=== PATIENT | female | born 1965 | race Caucasian/White ===

== ENCOUNTER → 2020-02-20 08:48 | Outpatient (CLI) | payer SELFPAY ==
--- NOTE | 2020-02-20 09:02 | BI_ITS ---
MAMMOGRAPHY - BILATERAL DIAGNOSTIC REASON FOR EXAM: Female, 54 years old. Routine screening PERTINENT HISTORY: NO FM HX , RT PEA SIZE LUMP SINCE JUN 2019 LIQ -GETS SMALLER AT TIMES BUT NOTICED AGAIN RECENTLY TECHNIQUE: Digital examination. Mediolateral oblique (MLO) and craniocaudad (CC) views of both breasts were obtained. CAD: CAD was performed on this study. COMPARISON: 2016 FINDINGS: Breast Composition: The breasts are almost entirely fatty. There are no dominant masses or suspicious calcifications. However, because the patient complains of a right breast lump, further evaluation with ultrasound is recommended No other significant abnormalities are identified. BI/DIAG MAMM W/CAD, BILAT IMPRESSION: Further ultrasonographic evaluation recommended, as described above. Recall Side: Right Breast ASSESSMENT CATEGORY: BIRADS Category 0: Incomplete. Need additional imaging evaluation. A letter regarding these results will be sent to the patient by the facility within 30 days. FOLLOW UP RECOMMENDATION: Ultrasound Recommended. (I) Approximately 10% of breast cancers are not detected by mammography. A normal mammogram should not delay biopsy of a clinically suspicious abnormality. Electronically Signed: Jeovanny Carey MD at 11:18 EDT , Service support ,
--- NOTE | 2020-02-20 09:02 | US_ITS ---
STUDY: ULTRASOUND BREAST - RIGHT REASON FOR EXAM: Female, 54 years old. Lump TECHNIQUE: Axial and longitudinal images of the RIGHT breast were performed with a high resolution ultrasound transducer. # OF IMAGES: 24 COMPARISON: Mammogram from 02/20/2020 FINDINGS: RIGHT Breast: Ultrasound evaluation of the right breast well-defined hypoechoic 0.6 x 0.4 x 0.3 cm nodule at 3 o''clock, 3 cm from the nipple. There is no posterior shadowing or associated architectural distortion. There is no suspicious shadowing solid lesion, or adenopathy. US/Breast Limited Unilateral IMPRESSION: Benign hypoechoic nonshadowing nonvascular 0.6 x 0.4 x 0.3 cm nodule at 3 o''clock, 3 cm from the nipple, likely a small fibroadenoma. No suspicious sonographic findings ASSESSMENT CATEGORY: BIRADS Category 2: Benign. A letter regarding these results will be sent to the patient by the facility within 30 days. Electronically Signed: Jeovanny Carey MD at 10:59 EDT , Service support ,
== END ==
DX: N63.10 Unspecified lump in the right breast, unspecified quadrant (principal)
CPT/HCPCS: 76642; 77062; 77066; G0279

== ENCOUNTER 2023-12-05 08:11 | Emergency (ER) | payer OTHER, SELFPAY ==
[2023-12-05] VITALS (8 sets, daily range): BP systolic 104–131; BP diastolic 61–91; PULSE 94–102; RESP 13–19; TEMP 36.6–36.9; O2SAT 92–100; BMI 33.3
--- NOTE | 2023-12-05 08:40 | EKG12_ITS ---
Test Reason : COUGH Blood Pressure : / mmHG Vent. Rate : 089 BPM Atrial Rate : 089 BPM P-R Int : 130 ms QRS Dur : 090 ms QT Int : 356 ms P-R-T Axes : 038 081 042 degrees QTc Int : 433 ms Normal sinus rhythm Normal ECG Confirmed by LIAM DAMON MD ([id number]), supervising film or videotape editor CHERRY MCKINNON ([id number]) on 12/07/2023 6:52:10 AM Referred By: Confirmed By:LIAM DAMON MD
--- NOTE | 2023-12-05 08:41 | EDS_ITS ---
HPI History of Present Illness Chief Complaint: Cough Narrative Narrative: 58-year-old female presenting with shortness of breath, cough, left-sided rib pain. Patient states that the cough started a couple of weeks ago. She is been seen by her PCP and states she had normal lab work. She has not had a chest x- ray however she states that her primary care ordered her a screening CT for cancer as she has a history of smoking. Patient reports has been worse today and yesterday and now she has pain with it. She describes shortness of breath just walking to the mailbox which is atypical for her. She has not had a fever, chills. She does not feel sick although she does have significant shortness of breath she says. She has not had any lower extremity edema. She states when she sleeps at night she feels short of breath when she wakes up. Now she reports she has been coughing so bad that the left lower abdomen started to hurt. Denies diarrhea, constipation, urinary symptoms. No vaginal complaints. PE Risk Factors: Negative for Cancer, OCP + Smoking + > 35, Prior DVT or PE, Recent immobilization, Recent surgery or Recent travel [facility] Medical History (Updated 12/05/23 @ 10:01 by Radha Humphrey) COPD (chronic obstructive pulmonary disease) Chronic pain Home Medications ?Medication ?Instructions ?Recorded ?Last Taken ?Type albuterol sulfate 90 mcg/actuation 2 puff inhalation Q4H PRN PRN 12/05/23 12/05/23 History aerosol inhaler wheezing benzonatate 100 mg capsule 100 mg PO TID PRN PRN cough 12/05/23 12/05/23 History budesonide-formoterol HFA 160 2 puff inhalation BID 12/05/23 12/05/23 History mcg-4.5 mcg/actuation aerosol inhaler cyclobenzaprine 10 mg tablet 10 mg PO BID PRN PRN muscle spasm 12/05/23 12/05/23 History gabapentin 100 mg capsule 100 mg PO DAILY 12/05/23 12/05/23 History hydrocodone 7.5 mg-acetaminophen 1 tab PO TID PRN PRN pain 12/05/23 12/05/23 History 325 mg tablet lidocaine 5 % topical patch 1 patch topical DAILY #15 ea 12/05/23 Unknown Rx Allergy/AdvReac Type Severity Reaction Status Date / Time acetaminophen (From Percocet) Allergy Itching Verified 12/05/23 08:14 azithromycin (From Zithromax) Allergy Itching Verified 12/05/23 08:14 clarithromycin (From Biaxin) Allergy PT UNSURE Verified 12/05/23 08:14 OF REACTION omeprazole (From Prilosec) Allergy PT UNSURE Verified 12/05/23 08:14 OF REACTION oxycodone (From Percocet) Allergy Itching Verified 12/05/23 08:14 Penicillins (PCN) Allergy Swelling Verified 12/05/23 08:14 Surgical History (Updated 12/05/23 @ 10:01 by Radha Humphrey) History of tonsillectomy History of ear surgery History of partial hysterectomy Social History Smoking Status: Current every day smoker tobacco type: cigarettes ROS ROS ED Constitutional Constitutional ED: Denies chills, fever(s) or sweats Eyes Eyes: Denies blurry vision or change in vision ENT ENT ED: Denies ear pain or sore throat Cardiovascular Cardiovascular: Reports orthopnea and other Details: Left rib pain ; Denies chest pain, palpitations or racing heartbeat Respiratory/Chest Respiratory/Chest: Reports cough, dyspnea, dyspnea on exertion and orthopnea; Denies sputum Gastrointestinal Gastrointestinal: Denies abdominal pain, constipation, diarrhea, nausea or vomiting Genitourinary Genitourinary ED: Denies dysuria, hematuria or urinary frequency Musculoskeletal Musculoskeletal: Denies arthralgias, myalgias or neck pain Integumentary Denies abscess, Abrasions or rash Neurologic Neurologic: Denies headache(s), paresthesias or weakness Psychiatric Psychiatric: Denies anxiety, depression, suicidal ideation or suicidal thoughts Endocrine Endocrinology: Denies polydipsia or polyuria EXAM Physical Exam Const Vital Signs: 12/05/23 08:14 12/05/23 08:14 12/05/23 08:40 Temperature 97.8 F 97.8 F Temperature Source Temporal Temporal Pulse Rate 102 H 102 H Respiratory Rate 18 18 Respiratory Effort Respiratory Depth Respiratory Pattern Blood Pressure 131/91 H 131/91 H Blood Pressure Mean 104 104 Pulse Ox 100 100 94 Oxygen Delivery Method Room Air Room Air Room Air 12/05/23 09:11 12/05/23 09:14 12/05/23 10:00 Temperature 97.9 F 97.8 F Temperature Source Temporal Temporal Pulse Rate 97 94 Respiratory Rate 14 13 Respiratory Effort Normal Non-Labored Respiratory Depth Normal Respiratory Pattern Normal Blood Pressure 124/81 H 109/79 Blood Pressure Mean 95 89 Pulse Ox 95 92 Oxygen Delivery Method Room Air Room Air Room Air 12/05/23 11:00 12/05/23 12:16 Temperature 98.0 F 98.4 F Temperature Source Temporal Temporal Pulse Rate 97 99 Respiratory Rate 19 H 17 Respiratory Effort Respiratory Depth Respiratory Pattern Blood Pressure 111/72 110/70 Blood Pressure Mean 85 83 Pulse Ox 93 94 Oxygen Delivery Method Room Air Room Air Positive well nourished General Appearance ED: NAD HEENT Reports moist mucous membranes atraumatic Eyes PERRL and EOMs intact bilaterally Neck no lymphadenopathy Chest Wall Chest Narrative: Tenderness to palpation of the left ribs posteriorly, laterally, anteriorly. Equal symmetric breath sounds and chest wall rise. No crepitance. No bruising, no rashes. Resp normal respiratory effort Cardio regular rhythm Rate: tachycardic GI Palpation: Negative for guarding, hepatomegaly or splenomegaly Back/Spine no CVA tenderness Neuro oriented x3 and CN's II-XII intact bilaterally Sensorium / Orientation: alert Motor Exam: strength 5/5 throughout Psych mental status grossly normal Skin no wounds MDM MDM MDM Narrative Medical decision making narrative: Patient presenting with left-sided rib pain from coughing for 2 weeks. Differential includes but is not limited to ACS, PE, aortic dissection, pneumonia, pneumothorax, CHF, muscle strain, costochondritis. Says it has been going on for 2 weeks I do not think she needs viral testing. CBC was obtained to assess white blood cell count, hemoglobin, platelets. BMP to assess renal function, electrolytes, glucose. High-sensitivity troponin EKG to assess for ischemia/dysrhythmia. BNP to assess for CHF. D-dimer to assess for PE. CBC shows normal white blood cell count 6.2. Hemoglobin 13.8. Platelets are normal at 252. Renal function and electrolytes within normal limits. High-sensitivity troponin is 6. EKG interpreted by myself shows a sinus rhythm at 89 bpm without sign of ischemic change or ectopy. BNP 12.5. Left rib series was obtained and interpreted by myself as no acute findings. There is no evidence of rib fracture or pneumonia. D-dimer came back elevated at 3.37 so we did obtain a CTA of the chest and this does not show anything acute. No evidence of PE, pneumonia, dissection, pleural effusion. Patient counseled on findings. She states she already has muscle relaxers and pain medicine at home. I will provide her with some Lidoderm patches to see if this will help with the pain. She was given 1 here in the ED. I feel she stable for discharge. Impression: 1. Dyspnea 2. Cough 3. Muscle strain 4. Chest pain?noncardiac Lab Data Attestation: I reviewed the patient's lab results. Labs: Laboratory Results - last 24 hr 12/05/23 08:50 WBC 6.2 RBC 4.65 Hgb 13.8 Hct 42.5 MCV 91.4 MCH 29.7 MCHC 32.5 RDW Std Deviation 46.6 H RDW Coeff of Luisa 13.8 Plt Count 252 MPV 8.6 Immature Gran % (Auto) 0.500 Neut % (Auto) 69.8 Lymph % (Auto) 17.2 L Dickinson % (Auto) 9.8 Eos % (Auto) 2.2 Baso % (Auto) 0.5 Absolute Neuts (auto) 4.4 Absolute Lymphs (auto) 1.07 Nucleated RBC % 0 D-Dimer Quant (PE/DVT) 3.37 H* Sodium 137 Potassium 3.9 Chloride 103 Carbon Dioxide 28.0 Anion Gap 6 BUN 7 Creatinine 0.68 Estim Creat Clear Calc 81.92 Est GFR (MDRD) Af Amer 113 Est GFR (MDRD) Non-Af 93 BUN/Creatinine Ratio 10.2 Glucose 106 Calcium 9.2 Troponin I High Sens 6 B-Natriuretic Peptide 12.5 Radiography Diagnostic Testing: Clinical Impression(s) from Imaging Studies Ribs w/Chest X-Ray 12/05/23 09:07 IMPRESSION: No evidence of displaced rib fracture. Electronically Signed: Eulalio Ramos MD at 9:31 EDT , Chest CTA 12/05/23 10:16 IMPRESSION: 1. No evidence of pulmonary embolism. 2. No acute pulmonary infiltrate or pleural effusions. 3. No demonstrated acute fracture. Electronically Signed: Eulalio Ramos MD at 12:16 EDT , Discharge Plan Triage Chief Complaint: Cough ED Provider: Alfa Carolina Dx/Rx/DC Orders Instructions: ED Chest Pain, Noncardiac, ED Dyspnea, ED Muscle Strain, Abdomen Prescriptions: New lidocaine 5 % adhesive patch,medicated 1 patch topical DAILY Qty: 15 0RF Rx Instructions: leave on most painful area for up to 12 hrs No Action benzonatate 100 mg capsule 100 mg PO TID PRN PRN (Reason: cough) albuterol sulfate 90 mcg/actuation HFA aerosol inhaler 2 puff INHALATION Q4H PRN PRN (Reason: wheezing) cyclobenzaprine 10 mg tablet 10 mg PO BID PRN PRN (Reason: muscle spasm) hydrocodone-acetaminophen 7.5-325 mg tablet 1 tab PO TID PRN PRN (Reason: pain) gabapentin 100 mg capsule 100 mg PO DAILY budesonide-formoterol 160-4.5 mcg/actuation HFA aerosol inhaler 2 puff INHALATION BID Primary Care Provider: Luba Cooper Referrals: SERA RUBALCAVA [Other] Print Language: Swedish Disposition Disposition: Home, Self Care
--- NOTE | 2023-12-05 08:42 | NURSING ---
NO OLD EKGS
[2023-12-05] MEDS: Ondansetron 4 MG/2 ML Vial IV (08:57)
[2023-12-05] MEDS: Morphine 4 MG/ML Syringe IV (08:57)
[2023-12-05 09:03] LABS: Absolute Lymphocyte Count 1.07 X10^3/uL (0.83-4.51); Absolute Neutrophil Count 4.4 X10^3/uL (2.0-7.7); Basophil# 0.03 X10^3/uL; Basophil% 0.5 % (0-1); Eosinophil# 0.14 X10^3/uL; Eosinophils% 2.2 % (0-5); Hematocrit 42.5 % (37-47); Hemoglobin 13.8 g/dL (12.0-15.0); Lymphocyte # 1.07 X10^3/ul (0.83-4.51); Lymphocyte % 17.2 % (19-41); Mean Corp Hgb Conc 32.5 g/dL (32-36); Mean Corpuscular Hgb 29.7 pg (27.0-32.0); Mean Corpuscular Volume 91.4 fL (81-99); Mean Platelet Vol. 8.6 fl (6.2-12.0); Monocyte# 0.61 X10^3/uL; Monocyte% 9.8 % (0-10); NRBC Flagged by Analyzer 0 % (0-5); Neutrophil # 4.35 X10^3/uL (2.7-7.7); Neutrophil % 69.8 % (47-70); Platelet Count 252 K/mm3 (150-450); RBC Distribution Width CV 13.8 % (11.6-14.6); RBC Distribution Width SD 46.6 fl (35.1-43.9); Red Blood Count 4.65 M/mm3 (4.2-5.4); White Blood Count 6.2 K/mm3 (4.4-11.0)
--- NOTE | 2023-12-05 09:07 | RAD_ITS ---
INDICATION: pain EXAMINATION/TECHNIQUE: X-RAY - XR Ribs Unilateral W/ PA Chest Min 3 Views COMPARISON: No relevant prior comparison study available FINDINGS: SOFT TISSUES: No soft tissue swelling or gas. BONES: No displaced fracture. No sclerotic or destructive changes observed. VISUALIZED LUNGS: Clear. No pneumothorax. RAD/Ribs Uni Min 3V w/PA Chest IMPRESSION: No evidence of displaced rib fracture. Electronically Signed: Eulalio Ramos MD at 9:31 EDT ,
[2023-12-05 09:25] LABS: BNP,B-Type NATRIURETIC PEPTIDE 12.5 pg/mL (0-100)
[2023-12-05 09:32] LABS: Anion Gap 6 (5-15); BUN 7 mg/dL (7-18); BUN/Creat Ratio 10.2 RATIO (10-20); Calcium,Total 9.2 mg/dL (8.5-10.1); Chloride 103 mmol/L (98-107); Creatinine, Serum 0.68 mg/dL (0.55-1.02); EST Glomerular Filtration Rate 93 mL/min (>60); Est Glom Filt Rate - Afr Amer 113 mL/min (>60); Estimated Creatinine Clearance 81.92 ml/min; Glucose 106 mg/dL (74-106); Potassium 3.9 mmol/L (3.5-5.1); Sodium Level 137 mmol/L (136-145); Troponin-I HS 6 pg/mL (3.0-54.0)
[2023-12-05 10:16] LABS: D-Dimer Quantitative (DVT/PE) 3.37 FEU/ug/m (0.27-0.49)
--- NOTE | 2023-12-05 10:16 | CT_ITS ---
STUDY: CTA CHEST REASON FOR EXAM: Female, 58 years old. Left rib pain RADIATION DOSAGE (If Supplied By Facility): CTDIvol = ( 12.44 ) mGy, DLP = ( 390.07 ) mGycm TECHNIQUE: The examination was performed with the intravenous administration of IV 100mL Isovue-370. Post-processing of the angiographic images was performed, with multiplanar reformation and 3D reconstruction. The protocol utilizes one or more of the following dose reduction techniques: automated exposure control, adjustment of mA and/or kV according to patient size,and/or use of iterative reconstruction technique. COMPARISON: No relevant prior comparison study available FINDINGS: Normal enhancement of the main pulmonary artery and right and left pulmonary arteries. Normal enhancement of the bilateral peripheral pulmonary arteries. There is no demonstrated pulmonary embolism. Normal thoracic aorta and visualized great vessels. There is no demonstrated aortic dissection. Normal heart and pericardium. Prominent nodes in the aortopulmonic be reactive. Otherwise no evidence of mediastinal adenopathy. Normal hilar regions. Normal visualized trachea and bronchi. There are no pulmonary infiltrates. Calcified right upper lobe granuloma. There are no pleural effusions. Normal chest wall structures. No demonstrated acute osseous changes. Mild depression of the superior endplate of T12. No demonstrated acute process in the visualized upper abdomen. Calcified granulomata in the spleen. CT/CTA Chest W/WO Contrast IMPRESSION: 1. No evidence of pulmonary embolism. 2. No acute pulmonary infiltrate or pleural effusions. 3. No demonstrated acute fracture. Electronically Signed: Eulalio Ramos MD at 12:16 EDT ,
[2023-12-05] MEDS: HYDROmorphone 0.5 MG/0.5 ML SYRINGE IV (10:34)
[2023-12-05] MEDS: Lidocaine 5% Patch 1 PATCH TOPICAL (12:34)
== END 2023-12-05 12:47 | disposition home or self-care (01) ==
PROVIDERS: Emergency Provider Student in an Organized Health Care Education/Training Program; PCP Nurse Practitioner Family; Visit Provider Student in an Organized Health Care Education/Training Program
DX: R06.00 Dyspnea, unspecified (principal); J44.9 Chronic obstructive pulmonary disease, unspecified; R05.9 Cough, unspecified; F17.210 Nicotine dependence, cigarettes, uncomplicated; R07.89 Other chest pain; Z79.51 Long term (current) use of inhaled steroids
CPT/HCPCS: 71101; 71275; 80048; 83880; 84484; 85025; 85379; 93005; 96374; 96375; 96376; 99285; Q9967; A4216; J2405

== ENCOUNTER → 2024-12-23 | Outpatient (CLI) | payer SELFPAY ==
[2024-12-23 15:50] LABS: Absolute Lymphocyte Count 1.35 X10^3/uL (0.83-4.51); Absolute Neutrophil Count 4.6 X10^3/uL (2.0-7.7); Basophil# 0.03 X10^3/uL; Basophil% 0.5 % (0-1); Hematocrit 40.2 % (37-47); Hemoglobin 13.7 g/dL (12.0-15.0); Lymphocyte # 1.35 X10^3/ul (0.83-4.51); Mean Corp Hgb Conc 34.1 g/dL (32-36); Mean Corpuscular Hgb 29.7 pg (27.0-32.0); Mean Platelet Vol. 8.8 fl (6.2-12.0); Monocyte# 0.47 X10^3/uL; Monocyte% 7.3 % (0-10); NRBC Flagged by Analyzer 0 % (0-5); Neutrophil # 4.56 X10^3/uL (2.7-7.7); Neutrophil % 70.9 % (47-70); Platelet Count 312 K/mm3 (150-450); RBC Distribution Width CV 13.7 % (11.6-14.6); RBC Distribution Width SD 43.8 fl (35.1-43.9); Red Blood Count 4.62 M/mm3 (4.2-5.4); White Blood Count 6.4 K/mm3 (4.4-11.0)
[2024-12-23 16:00] LABS: Hemoglobin A1c 5.1 % (<=5.6)
[2024-12-23 16:51] LABS: ALB/GLOB Ratio 1.6 RATIO (0.9-2.4); AST(SGOT) 17 U/L (<=31); Alanine Aminotransfer ALT/SGPT 13 U/L (<=34); Albumin, Serum 4.2 g/dL (3.4-4.8); Alkaline Phosphatase 79 U/L (35-104); Anion Gap 13 (5-15); BUN 7 mg/dL (4-19); BUN/Creat Ratio 10.9 RATIO (10-20); Calcium,Total 9.2 mg/dL (7.6-11.0); Carbon Dioxide 21.8 mmol/L (21.0-32.0); Chloride 101 mmol/L (98-108); Cholesterol 198 mg/dL (<=200); Creatinine, Serum 0.62 mg/dL (0.70-1.20); EST Glomerular Filtration Rate 102 (>60); Globulin 2.6 g/dL (2.2-4.2); Glucose 99 mg/dL (70-99); High Density Lipoprotein 69 mg/dL; Low Density Lipoprotein Calc. 111 mg/dL; Potassium 3.6 mmol/L (3.3-5.1); Protein, Total 6.7 g/dL (5.9-8.4); Sodium Level 136 mmol/L (133-145); Total Bilirubin 0.22 mg/dL (0.00-1.30); Triglycerides 91 mg/dL; Very Low Density Lipoprotein 18 mg/dL (5-40); Vitamin B12 277 pg/mL (180-914); Vitamin D,25 Hydroxy 22.7 ng/mL (30-100); cholesterol:hdl ratio screen 2.89
[2024-12-23 17:06] LABS: FOLATES,SERUM (FOLIC ACID) 3.65 ng/mL (4.60-34.80)
[2024-12-25 06:38] LABS: GGTP 12 IU/L (0-60)
== END | disposition home or self-care (01) ==
LOC: LAB 14:08
PROVIDERS: PCP Nurse Practitioner Family; Referring Provider Nurse Practitioner Family; Visit Provider Nurse Practitioner Family
DX: E78.5 Hyperlipidemia, unspecified (principal); J44.9 Chronic obstructive pulmonary disease, unspecified; F41.9 Anxiety disorder, unspecified
CPT/HCPCS: 36415; 80053; 80061; 82306; 82607; 82746; 82977; 83036; 84439; 84443; 85025

== ENCOUNTER → 2025-01-05 | Outpatient (CLI) | payer SELFPAY ==
--- NOTE | 2025-01-05 07:37 | BI_ITS ---
EXAM: SCRN MAMM (CAD)W/JONAS BILAT DATE: 01/05/2025 CLINICAL HISTORY: F, Age 59 y/o , SCREENING TECHNIQUE: SCRN MAMM (CAD)W/JONAS BILAT COMPARISON: Prior exam(s) dated 02/20/2020. FINDINGS: TISSUE DENSITY: There are scattered areas of fibroglandular density. Bilateral Breast Mammographic Findings: There is in a regular high density spiculated mass in the retroareolar right breast. No significant masses, calcifications or other abnormalities are identified in the left breast. BI/SCRN MAMM (CAD)W/JONAS BILAT IMPRESSION: The irregular spiculated mass in the retroareolar right breast requires further evaluation. Recommend diagnostic ultrasound of the right breast and right axilla. OVERALL FINAL ASSESSMENT BI-RADS 0: INCOMPLETE - NEED ADDITIONAL IMAGING EVALUATION. RECOMMENDATION: Additional Views obtained/call backs A letter with findings and recommendations will be mailed to the patient. Reading Location: [id number]
--- NOTE | 2025-01-05 07:37 | BI_ITS ---
EXAM: SCRN MAMM (CAD)W/JONAS BILAT DATE: 01/05/2025 CLINICAL HISTORY: F, Age 59 y/o , SCREENING TECHNIQUE: SCRN MAMM (CAD)W/JONAS BILAT COMPARISON: Prior exam(s) dated 02/20/2020. FINDINGS: TISSUE DENSITY: There are scattered areas of fibroglandular density. Bilateral Breast Mammographic Findings: There is in a regular high density spiculated mass in the retroareolar right breast. No significant masses, calcifications or other abnormalities are identified in the left breast. BI/SCRN MAMM (CAD)W/JONAS BILAT IMPRESSION: The irregular spiculated mass in the retroareolar right breast requires further evaluation. Recommend diagnostic ultrasound of the right breast and right axilla. OVERALL FINAL ASSESSMENT BI-RADS 0: INCOMPLETE - NEED ADDITIONAL IMAGING EVALUATION. RECOMMENDATION: Additional Views obtained/call backs A letter with findings and recommendations will be mailed to the patient. Reading Location: [id number]
--- OUTSIDE RECORDS SUMMARY | 2025-01-05 07:51 | XMS RPT_ITS | CCD ---
Author Organization [facility] Care Team Providers Care Adoption Coordinator Name Role Phone KHADAR SERA Unavailable Unavailable SERA RUBALCAVA Unavailable Unavailable KHADAR, SERA Unavailable Unavailable Swihart DIGITAL CONTENT PRODUCER-C, Luba Primary Care Provider [phone] Swiorquideat DIGITAL CONTENT PRODUCER-C, Luba Attending Provider Swiorquideat DIGITAL CONTENT PRODUCER-C, Luba Referring Provider Constantinot, Luba Primary Care Unavailable Constantinot, Luba Attending Unavailable Swihart, Luba Referring Unavailable Swihart, Luba Primary Care Unavailable Sheyla Squires Attending Unavailable Sheyla Squires Referring Unavailable Swihart, Luba Attending Unavailable GeovannaerSheyla pérez Referring Unavailable Swihart, Luba Primary Care Unavailable Allergies Allergy Classification Reported Allergen(s) Allergy Type Date of Onset Reaction(s) Facility (1 source) acetaminophen / oxyCODONE; Translations: [OXYCODONE-ACETAM INOPHEN] Drug Allergy 0 AOF [facility] (3 sources) azithromycin; Translations: [AZITHROMYCIN] Drug Allergy 4 AOF, Itching [facility] (3 sources) clarithromycin; Translations: [CLARITHROMYCIN] Drug Allergy 0 AOF, PT UNSURE OF REACTION [facility] (3 sources) omeprazole; Translations: [OMEPRAZOLE] Drug Allergy 0 [facility], [facility]NS[facility] (3 sources) Penicillins; Translations: [PENICILLINS] Propensity to adverse reactions to drug (disorder) 0 Swelling [facility] (1 source) Acetaminophen Drug Allergy 4 Itching [facility] (1 source) oxyCODONE Drug Allergy 4 Itching [facility] (1 source) Acetaminophen Drug Allergy 4 [facility] Repository (1 source) oxyCODONE Drug Allergy 4 [facility] Repository Medications Current Medications Medication Drug Class(es) Dates Sig (Normalized) Sig (Original) acetaminophen 325 mg / HYDROcodone bitartrate 7.5 mg oral tablet (1 source) Opioid Agonist Start: 12-05-2023 Hydrocodone-Acetamin ophen 7.5-325 mg tablet Active 1 {tbl} PO 3 TIMES DAILY NEEDED as needed for pain December 05, 2023 12:00am [id number] 200 actuat albuterol 0.09 mg/actuat metered dose inhaler (1 source) beta2-Adrenergic Agonist Start: 12-05-2023 Albuterol Sulfate 90 mcg/actuation HFA aerosol inhaler Active 2 NMA INHALATION EVERY 4 HOURS NEEDED as needed for wheezing December 05, 2023 12:00am benzonatate 100 mg oral capsule (1 source) Non-narcotic Antitussive Start: 12-05-2023 take 1 capsule by mouth three times daily as needed for cough Benzonatate 100 mg capsule Active 100 mg PO 3 TIMES DAILY NEEDED as needed for cough December 05, 2023 12:00am Budesonide-Formoterol (1 source) Corticosteroid, beta2-Adrenergic Agonist Start: 12-05-2023 Budesonide-Formotero l 160-4.5 mcg/actuation HFA aerosol inhaler Active 2 NMA INHALATION TWICE A DAY December 05, 2023 12:00am cyclobenzaprine hydrochloride 10 mg oral tablet (1 source) Muscle Relaxant Start: 12-05-2023 take 1 tablet by mouth twice daily as needed for muscle spasms Cyclobenzaprine 10 mg tablet Active 10 mg PO TWICE DAILY NEEDED as needed for muscle spasm December 05, 2023 12:00am gabapentin 100 mg oral capsule (1 source) Anti-epileptic Agent Start: 12-05-2023 take 1 capsule by mouth once daily Gabapentin 100 mg capsule Active 100 mg PO DAILY December 05, 2023 12:00am lidocaine 0.05 mg/mg medicated patch (1 source) Antiarrhythmic, Amide Local Anesthetic Start: 12-05-2023 Lidocaine 5 % adhesive patch,medicated Active 1 NMA TOPICAL DAILY December 05, 2023 12:00am leave on most painful area for up to 12 hrs Problems Active Problems Problem Classification Problem Date Documented Da te Episodic/Chronic Disorders of lipid metabolism (1 source) Hyperlipidemia, unspecified; Translations: [Hyperlipidemia, unspecified] Onset: 12-28-2024 Chronic Other screening for suspected conditions (not mental disorders or infectious disease) (1 source) Encounter for screening mammogram for malignant neoplasm of breast; Translations: [Encounter for screening mammogram for malignant neoplasm of breast] Onset: 12-28-2024 Episodic Other skin disorders (1 source) Localized swelling, mass and lump, head; Translations: [Localized swelling, mass and lump, head] Onset: 12-30-2024 Episodic Unclassified (1 source) Encounter for screening mammogram for malignant neoplasm of breast / Z12.31(ICD-10) Onset: 04-09-2017 Past or Other Problems Problem Classification Problem Date Documented Da te Episodic/Chronic Unclassified (1 source) Encounter for screening mammogram for malignant neoplasm of breast; Translations: [Encounter for screening mammogram for malignant neoplasm of breast] Onset: 04-09-2017 Results Test Name Value Interpretation Reference Range Facility L501.5101on 12-25-2024 GGTP 12 IU/L Normal 0-60 [facility] Comment on above: Result Comment: Perf ormed at: CB - [facility] [address] [id number] Instructional Aide: Sumanth Alcala PhD, Phone: [phone] Performed By: #### L 506.0400, L503.0106, L100.0100, L501.9520, L506.1001, L501.5101, L500.4100, L501.9985, L506.0200, L500.4050 #### [facility] [address] [place], [address] Absolute lymphocyte countOrd ered By: Luba Cooper on 12-23-2024 Lymphocytes Auto (Unsp spec) [#/Vol] 1.35 10*3/uL 0.83-4.51 [facility] Absolute neutrophil countOrd ered By: Luba Cooper on 12-23-2024 Neutrophils (Bld) [#/Vol] 4.6 10*3/uL 2.0-7.7 [facility] Anion gap in Serum or Plasma Ordered By: Luba Cooper on 12-23-2024 Anion gap [Moles/Vol] 13 mmol/L 5- [facility] Automated lymphocyte count a s percentage of total leukocytesOrdered By: Luba Cooper on 12-23-2024 Lymphocytes/100 WBC Auto (Unsp spec) 21.0 % [facility] BUN/creatinine ratioOrdered By: Luba Cooper on 12-23-2024 Urea nitrogen/Creatinine [Mass ratio] 10.9 mg/mg 04-24 [facility] Basophil percentageOrdered B y: Luba Cooper on 12-23-2024 Basophils/100 WBC (Bld) 0.5 % 0-1 [facility] Bilirubin, totalOrdered By: Luba Cooper on 12-23-2024 Bilirubin [Mass/Vol] 0.22 mg/dL 0.00-1.30 [facility] CBC W/Diff, Automatedon 12-05 Absolute Lymph 1.35 X10 3/uL Normal 0.83-4.51 [facility] Comment on above: Performed By: #### L 506.0400, L503.0106, L100.0100, L501.9520, L506.1001, L501.5101, L500.4100, L501.9985, L506.0200, L500.4050 #### [facility] [address] [place], [place], [id number] Absolute Neut 4.6 X10 3/uL Normal 2.0-7.7 [facility] Comment on above: Performed By: #### L 506.0400, L503.0106, L100.0100, L501.9520, L506.1001, L501.5101, L500.4100, L501.9985, L506.0200, L500.4050 #### [facility] [address] [place], [address] Basophils/100 WBC (Bld) 0.5 % Normal 0-1 [facility] Comment on above: Performed By: #### L 506.0400, L503.0106, L100.0100, L501.9520, L506.1001, L501.5101, L500.4100, L501.9985, L506.0200, L500.4050 #### [facility] [address] [place], [place], [phone] (034) Eosinophils/100 WBC (Bld) 0.0 % Normal 0-5 [facility] Comment on above: Performed By: #### L 506.0400, L503.0106, L100.0100, L501.9520, L506.1001, L501.5101, L500.4100, L501.9985, L506.0200, L500.4050 #### [facility] [address] [place], [place], [phone] (039) Erythrocyte distribution width (RBC) [Ratio] 13.7 % Normal 11.6-14.6 [facility] Comment on above: Performed By: #### L 506.0400, L503.0106, L100.0100, L501.9520, L506.1001, L501.5101, L500.4100, L501.9985, L506.0200, L500.4050 #### [facility] [address] [place], [place], [phone] (966) Hematocrit (Bld) [Volume fraction] 40.2 % Normal 37-47 [facility] Comment on above: Performed By: #### L 506.0400, L503.0106, L100.0100, L501.9520, L506.1001, L501.5101, L500.4100, L501.9985, L506.0200, L500.4050 #### [facility] [address] [place], [address] (697) Hemoglobin (Bld) [Mass/Vol] 13.7 g/dL Normal 12.0-15.0 [facility] Comment on above: Performed By: #### L 506.0400, L503.0106, L100.0100, L501.9520, L506.1001, L501.5101, L500.4100, L501.9985, L506.0200, L500.4050 #### [facility] [address] [place], [address] IG% 0.300 Normal 0.0-0.9 [facility] Comment on above: Result Comment: IG% - Immature Granulocytes (promyelocytes, myelocytes and metamyelocytes) > 1% indicates that a LEFT SHIFT is Present. Performed By: #### L 506.0400, L503.0106, L100.0100, L501.9520, L506.1001, L501.5101, L500.4100, L501.9985, L506.0200, L500.4050 #### [facility] [address] [place], [address] Lymphocytes/100 WBC (Bld) 21.0 % Normal 19-41 [facility] Comment on above: Performed By: #### L 506.0400, L503.0106, L100.0100, L501.9520, L506.1001, L501.5101, L500.4100, L501.9985, L506.0200, L500.4050 #### [facility] [address] [place], [address] MCH (RBC) [Entitic mass] 29.7 pg Normal 27.0-32.0 [facility] Comment on above: Performed By: #### L 506.0400, L503.0106, L100.0100, L501.9520, L506.1001, L501.5101, L500.4100, L501.9985, L506.0200, L500.4050 #### [facility] [address] [facility] [place], [address] MCHC (RBC) [Mass/Vol] 34.1 g/dL Normal 32-36 [facility] Comment on above: Performed By: #### L 506.0400, L503.0106, L100.0100, L501.9520, L506.1001, L501.5101, L500.4100, L501.9985, L506.0200, L500.4050 #### [facility] [address] [facility] [place], [address] MCV (RBC) [Entitic vol] 87.0 fL Normal 81-99 [facility] Comment on above: Performed By: #### L 506.0400, L503.0106, L100.0100, L501.9520, L506.1001, L501.5101, L500.4100, L501.9985, L506.0200, L500.4050 #### [facility] [address] [facility] [place], [address] Monocytes/100 WBC (Bld) 7.3 % Normal 0-10 [facility] Comment on above: Performed By: #### L 506.0400, L503.0106, L100.0100, L501.9520, L506.1001, L501.5101, L500.4100, L501.9985, L506.0200, L500.4050 #### [facility] [address] [facility] [place], [address] Neutrophils/100 WBC (Bld) 70.9 % High 47-70 [facility] Comment on above: Performed By: #### L 506.0400, L503.0106, L100.0100, L501.9520, L506.1001, L501.5101, L500.4100, L501.9985, L506.0200, L500.4050 #### [facility] [address] [facility] [place], [address] Nucleated RBC (Bld) [#/Vol] 0 10*3/uL Normal 0-5 [facility] Comment on above: Performed By: #### L 506.0400, L503.0106, L100.0100, L501.9520, L506.1001, L501.5101, L500.4100, L501.9985, L506.0200, L500.4050 #### [facility] [address] [place], [address] Platelet mean volume (Bld) [Entitic vol] 8.8 fL Normal 6.2-12.0 [facility] Comment on above: Performed By: #### L 506.0400, L503.0106, L100.0100, L501.9520, L506.1001, L501.5101, L500.4100, L501.9985, L506.0200, L500.4050 #### [facility] [address] [place], [address] Platelets (Bld) [#/Vol] 312 10*3/uL Normal 150-450 [facility] Comment on above: Performed By: #### L 506.0400, L503.0106, L100.0100, L501.9520, L506.1001, L501.5101, L500.4100, L501.9985, L506.0200, L500.4050 #### [facility] [address] [place], [address] RBC (Bld) [#/Vol] 4.62 10*6/uL Normal 4.2-5.4 [facility] Comment on above: Performed By: #### L 506.0400, L503.0106, L100.0100, L501.9520, L506.1001, L501.5101, L500.4100, L501.9985, L506.0200, L500.4050 #### [facility] [address] [place], [address] RDW SD 43.8 fl Normal 35.1-43.9 [facility] Comment on above: Performed By: #### L 506.0400, L503.0106, L100.0100, L501.9520, L506.1001, L501.5101, L500.4100, L501.9985, L506.0200, L500.4050 #### [facility] [address] [place], [address] WBC (Bld) [#/Vol] 6.4 10*3/uL Normal 4.4-11.0 [facility] Comment on above: Performed By: #### L 506.0400, L503.0106, L100.0100, L501.9520, L506.1001, L501.5101, L500.4100, L501.9985, L506.0200, L500.4050 #### [facility] [address] [place], [place], [phone] Calculated very low density lipoprotein (VLDL) cholesterol measurementOrdered By: Luba Cooper on 12-23-2024 Calculated very low density lipoprotein (VLDL) cholesterol measurement 18 mg/dL 5-40 [facility] Carbon dioxide, total [Moles /volume] in Central venous bloodOrdered By: Luba Cooper on 12-23-2024 CO2 [Moles/Vol] 21.8 mmol/L 21.0-32.0 [facility] Chloride assayOrdered By: Jess Licea on 12-23-2024 Chloride [Moles/Vol] 101 mmol/L 98-108 [facility] Comprehensive Metabolic Prof ilon 12-23-2024 Albumin [Mass/Vol] 4.2 g/dL Normal 3.4-4.8 [facility] Comment on above: Performed By: #### L 506.0400, L503.0106, L100.0100, L501.9520, L506.1001, L501.5101, L500.4100, L501.9985, L506.0200, L500.4050 #### [facility] [address] [place], [place], [id number] Albumin/Globulin [Mass ratio] 1.6 {ratio} Normal 0.9-2.4 [facility] Comment on above: Performed By: #### L 506.0400, L503.0106, L100.0100, L501.9520, L506.1001, L501.5101, L500.4100, L501.9985, L506.0200, L500.4050 #### [facility] [address] [place], [place], [phone] (406) ALK PHOS 79 U/L Normal 35-104 [facility] Comment on above: Performed By: #### L 506.0400, L503.0106, L100.0100, L501.9520, L506.1001, L501.5101, L500.4100, L501.9985, L506.0200, L500.4050 #### [facility] [address] [place], [place], [id number] ALT [Catalytic activity/Vol] 13 U/L Normal <=34 [facility] Comment on above: Performed By: #### L 506.0400, L503.0106, L100.0100, L501.9520, L506.1001, L501.5101, L500.4100, L501.9985, L506.0200, L500.4050 #### [facility] [address] [place], [place], [id number] AST [Catalytic activity/Vol] 17 U/L Normal <=31 [facility] Comment on above: Performed By: #### L 506.0400, L503.0106, L100.0100, L501.9520, L506.1001, L501.5101, L500.4100, L501.9985, L506.0200, L500.4050 #### [facility] [address] [place], [address] Bilirubin [Mass/Vol] 0.22 mg/dL Normal 0.00-1.30 [facility] Comment on above: Performed By: #### L 506.0400, L503.0106, L100.0100, L501.9520, L506.1001, L501.5101, L500.4100, L501.9985, L506.0200, L500.4050 #### [facility] [address] [place], [address] BUN/CRE 10.9 RATIO Normal 10-20 [facility] Comment on above: Performed By: #### L 506.0400, L503.0106, L100.0100, L501.9520, L506.1001, L501.5101, L500.4100, L501.9985, L506.0200, L500.4050 #### [facility] [address] [place], [address] Calcium [Mass/Vol] 9.2 mg/dL Normal 7.6-11.0 [facility] Comment on above: Performed By: #### L 506.0400, L503.0106, L100.0100, L501.9520, L506.1001, L501.5101, L500.4100, L501.9985, L506.0200, L500.4050 #### [facility] [address] [place], [address] Chloride [Moles/Vol] 101 mmol/L Normal 98-108 [facility] Comment on above: Performed By: #### L 506.0400, L503.0106, L100.0100, L501.9520, L506.1001, L501.5101, L500.4100, L501.9985, L506.0200, L500.4050 #### [facility] [address] [place], [place], [id number] CO2 [Moles/Vol] 21.8 mmol/L Normal 21.0-32.0 [facility] Comment on above: Performed By: #### L 506.0400, L503.0106, L100.0100, L501.9520, L506.1001, L501.5101, L500.4100, L501.9985, L506.0200, L500.4050 #### [facility] [address] [place], [place], [id number] Creatinine [Mass/Vol] 0.62 mg/dL Low 0.70-1.20 [facility] Comment on above: Performed By: #### L 506.0400, L503.0106, L100.0100, L501.9520, L506.1001, L501.5101, L500.4100, L501.9985, L506.0200, L500.4050 #### [facility] [address] [place], [place], [id number] GAP 13 Normal 5-15 [facility] Comment on above: Performed By: #### L 506.0400, L503.0106, L100.0100, L501.9520, L506.1001, L501.5101, L500.4100, L501.9985, L506.0200, L500.4050 #### [facility] [address] [place], [place], [id number] GFR/1.73 sq M.predicted among non-blacks MDRD (S/P/Bld) [Vol rate/Area] 102 mL/min/{1.73_m2} Normal >60 [facility] Comment on above: Result Comment: mL/m in/1.73m2 CKD-EPI Creatinine Equation (2020) Performed By: #### L 506.0400, L503.0106, L100.0100, L501.9520, L506.1001, L501.5101, L500.4100, L501.9985, L506.0200, L500.4050 #### [facility] [address] [place], [address] Globulin (S) [Mass/Vol] 2.6 g/dL Normal 2.2-4.2 [facility] Comment on above: Performed By: #### L 506.0400, L503.0106, L100.0100, L501.9520, L506.1001, L501.5101, L500.4100, L501.9985, L506.0200, L500.4050 #### [facility] [address] [place], [address] Glucose [Mass/Vol] 99 mg/dL Normal 70-99 [facility] Comment on above: Performed By: #### L 506.0400, L503.0106, L100.0100, L501.9520, L506.1001, L501.5101, L500.4100, L501.9985, L506.0200, L500.4050 #### [facility] [address] [place], [place], [id number] (621) Potassium [Moles/Vol] 3.6 mmol/L Normal 3.3-5.1 [facility] Comment on above: Performed By: #### L 506.0400, L503.0106, L100.0100, L501.9520, L506.1001, L501.5101, L500.4100, L501.9985, L506.0200, L500.4050 #### [facility] [address] [place], [address] Sodium [Moles/Vol] 136 mmol/L Normal 133-145 [facility] Comment on above: Performed By: #### L 506.0400, L503.0106, L100.0100, L501.9520, L506.1001, L501.5101, L500.4100, L501.9985, L506.0200, L500.4050 #### [facility] [address] [place], [address] T PROT 6.7 g/dL Normal 5.9-8.4 [facility] Comment on above: Performed By: #### L 506.0400, L503.0106, L100.0100, L501.9520, L506.1001, L501.5101, L500.4100, L501.9985, L506.0200, L500.4050 #### [facility] [address] [place], [address] Urea nitrogen [Mass/Vol] 7 mg/dL Normal 4-19 [facility] Comment on above: Performed By: #### L 506.0400, L503.0106, L100.0100, L501.9520, L506.1001, L501.5101, L500.4100, L501.9985, L506.0200, L500.4050 #### [facility] [address] [place], [place], [phone] Eosinophil percentageOrdered By: Luba Coopre on 12-23-2024 Eosinophils/100 WBC (Bld) 0.0 % 0-5 [facility] Erythrocyte distribution wid th ratioOrdered By: Luba Cooper on 12-23-2024 Erythrocyte distribution width (RBC) [Ratio] 13.7 % 11.6-14.6 [facility] Erythrocyte distribution wid th standard deviationOrdered By: Luba Cooper on 12-23-2024 Erythrocyte distribution width (RBC) [Ratio] 43.8 fl 35.1-43.9 [facility] Folate [Moles/volume] in Ser um or PlasmaOrdered By: Luba Cooper on 12-23-2024 Folate [Moles/Vol] 3.65 ng/mL Low 4.60-34.80 [facility] Comment on above: Hemolysis, Results w ill be affected, Requires Recollection. Folates,Serum (Folic Acid)on 12-23-2024 FOLATES,SERUM 3.65 ng/mL Low 4.60-34.80 [facility] Comment on above: Order Comment: N Result Comment: Hemo lysis, Results will be affected, Requires Recollection. Performed By: #### L 506.0400, L503.0106, L100.0100, L501.9520, L506.1001, L501.5101, L500.4100, L501.9985, L506.0200, L500.4050 #### [facility] [address] [place], [place], [id number] Gamma glutamyl transferase ( GGT) measurementOrdered By: Luba Cooper on 12-23-2024 Amylase [Catalytic activity/Vol] 12 U/L 0-60 [facility] Comment on above: Performed at: [place] [id number] Director: Sumanth Alcala PhD, Phone: [phone] Glomerular filtration rate ( GFR) estimation/1.73 sq m using serum, plasma, or whole bOrdered By: Luba Cooper on 12-23-2024 GFR/1.73 sq M.predicted among non-blacks MDRD (S/P/Bld) [Vol rate/Area] 102 mL/min/{1.73_m2} >60 [facility] Comment on above: mL/min/1.73m2 CKD-EP I Creatinine Equation (2020) Hematocrit Auto (Bld) [Volum e fraction]Ordered By: Luba Cooper on 12-23-2024 Hematocrit (Bld) [Volume fraction] 40.2 % 37-47 [facility] Hemoglobin A1c percentageOrd ered By: Luba Cooper on 12-23-2024 HbA1c (Bld) [Mass fraction] 5.1 % Normal <=5.6 [facility] Comment on above: Normal < 5.7 % Predi abetic 5.7 - 6.4 % Diabetic >or= 6.5 % Please note range changes. Result Comment: Norm al < 5.7 % Prediabetic 5.7 - 6.4 % Diabetic >or= 6.5 % Please note range changes. Performed By: #### L 506.0400, L503.0106, L100.0100, L501.9520, L506.1001, L501.5101, L500.4100, L501.9985, L506.0200, L500.4050 #### [facility] [address] [place], [address] Hemoglobin measurementOrdere d By: Luba Cooper on 12-23-2024 Hemoglobin (Bld) [Mass/Vol] 13.7 g/dL 12.0-15.0 [facility] Immature granulocytes/100 WB C Auto (Bld)Ordered By: Luba Cooper on 12-23-2024 Immature granulocytes/100 WBC (Bld) 0.300 % 0.0-0.9 [facility] Comment on above: IG% - Immature Granu locytes (promyelocytes, myelocytes and metamyelocytes) > 1% indicates that a LEFT SHIFT is Present. LDL calc ser/plasOrdered By: Luba Cooper on 12-23-2024 Cholesterol in LDL [Mass/Vol] 111 mg/dL [facility] Comment on above: Hzjrdyhqvk=132-615 m g/dL & Higher Fqbu=845 mg/dL or greater Laboratory - Chemistry and C hemistry - challengeOrdered By: Luba Cooper on 12-23-2024 AST [Catalytic activity/Vol] 17 U/L <32 [facility] Lipid Profileon 12-23-2024 CHOL:HDL 2.89 Normal [facility] Comment on above: Performed By: #### L 506.0400, L503.0106, L100.0100, L501.9520, L506.1001, L501.5101, L500.4100, L501.9985, L506.0200, L500.4050 #### [facility] [address] [place], [place], [phone] Cholesterol [Mass/Vol] 198 mg/dL Normal <=[address] [facility] Comment on above: Result Comment: Chol esterol level, Desirable <200 mg/dL Borderline high cholesterol 200-239 mg/dL High cholesterol >=240 mg/dL Recommendations of the NCEP Adult Treatment Panel for the following risk-cutoff thresholds for the [place] population. Performed By: #### L 506.0400, L503.0106, L100.0100, L501.9520, L506.1001, L501.5101, L500.4100, L501.9985, L506.0200, L500.4050 #### [facility] [address] [place], [address] Cholesterol in HDL [Mass/Vol] 69 mg/dL Normal [facility] Comment on above: Result Comment: [place] Cholesterol Education Program (NCEP) guidelines: <40 mg/dL: Low HDL-cholesterol (major risk factor for CHD) >= 60 mg/dL: High HDL-cholesterol (negative risk factor for CHD) HDL-cholesterol is affected by a number of factors, e.g. smoking, exercise, hormones, sex and age. Performed By: #### L 506.0400, L503.0106, L100.0100, L501.9520, L506.1001, L501.5101, L500.4100, L501.9985, L506.0200, L500.4050 #### [facility] [address] [place], [address] Cholesterol in LDL [Mass/Vol] 111 mg/dL Normal [facility] Comment on above: Result Comment: Bord twjpix=000-820 mg/dL Higher Mogq=346 mg/dL or greater Performed By: #### L 506.0400, L503.0106, L100.0100, L501.9520, L506.1001, L501.5101, L500.4100, L501.9985, L506.0200, L500.4050 #### [facility] [address] [place], [address] Cholesterol in VLDL [Mass/Vol] 18 mg/dL Normal 5-40 [facility] Comment on above: Performed By: #### L 506.0400, L503.0106, L100.0100, L501.9520, L506.1001, L501.5101, L500.4100, L501.9985, L506.0200, L500.4050 #### [facility] [address] [place], [place], [id number] Triglyceride [Mass/Vol] 91 mg/dL Normal [facility] Comment on above: Result Comment: The drugs N-Acetylcysteine and Metamizole may falsely depress this assay. Normal range: <150 mg/dL Borderline High: 150-199 mg/dL High: 200-499 mg/dL Very High: >500 mg/dL Performed By: #### L 506.0400, L503.0106, L100.0100, L501.9520, L506.1001, L501.5101, L500.4100, L501.9985, L506.0200, L500.4050 #### [facility] [address] [place], [place], [id number] MCV (mean corpuscular volume ) determinationOrdered By: Luba Cooper on 12-23-2024 MCV (RBC) [Entitic vol] 87.0 fL 81-99 [facility] Mean corpuscular hemoglobin (MCH) determinationOrdered By: uLba Cooper on 12-23-2024 MCH (RBC) [Entitic mass] 29.7 pg 27.0-32.0 [facility] Mean corpuscular hemoglobin concentration (MCHC) determinationOrdered By: Luba Cooper on 12-23-2024 MCHC (RBC) [Mass/Vol] 34.1 g/dL 32-36 [facility] Mean platelet volume determi nationOrdered By: Luba Cooper on 12-23-2024 Platelet mean volume (Bld) [Entitic vol] 8.8 fL 6.2-12.0 [facility] Monocyte percentageOrdered B y: Luba Cooper on 12-23-2024 Monocytes/100 WBC (Bld) 7.3 % 0-10 [facility] Neutrophil percentageOrdered By: Luba Cooper on 12-23-2024 Neutrophils/100 WBC (Bld) 70.9 % High 47-70 [facility] Nucleated red blood cell per centageOrdered By: Luba Cooper on 12-23-2024 Nucleated RBC/100 WBC (Bld) [Ratio] 0 % 0-5 [facility] Platelet countOrdered By: Jess Licea on 12-23-2024 Platelets (Bld) [#/Vol] 312 10*3/uL 150-450 [facility] Potassium measurement (mass/ volume)Ordered By: Luba Cooper on 12-23-2024 Potassium (Unsp spec) [Mass/Vol] 3.6 mmol/L 3.3-5.1 [facility] RBC Auto (Bld) [#/Vol]Ordere d By: Luba Cooper on 12-23-2024 RBC (Bld) [#/Vol] 4.62 10*6/uL 4.2-5.4 [facility] Screening total cholesterol/ high density lipoprotein (HDL) cholesterol ratioOrdered By: Luba Cooper on 12-23-2024 Cholesterol.total/Cholest sabas in HDL [Mass ratio] 2.89 {ratio} [facility] Serum creatinine measurement (mass/volume)Ordered By: Luba Cooper on 12-23-2024 Creatinine [Mass/Vol] 0.62 mg/dL Low 0.70-1.20 [facility] Serum globulin measurementOr dered By: Luba Cooper on 12-23-2024 Globulin (S) [Mass/Vol] 2.6 g/dL 2.2-4.2 [facility] Serum glucose measurement (m ass/volume)Ordered By: Luba Cooper on 12-23-2024 Glucose [Mass/Vol] 99 mg/dL 70-99 [facility] Serum or plasma alanine peterson otransferase (ALT) measurementOrdered By: Luba Cooper on 12-23-2024 ALT [Catalytic activity/Vol] 13 U/L <35 [facility] Serum or plasma albumin kanwal urement (mass/volume)Ordered By: Luba Cooper on 12-23-2024 Albumin [Mass/Vol] 4.2 g/dL 3.4-4.8 [facility] Serum or plasma albumin/glob ulin mass ratioOrdered By: Luba Cooper on 12-23-2024 Albumin/Globulin [Mass ratio] 1.6 {ratio} 0.9-2.4 [facility] Serum or plasma alkaline kylee sphatase measurementOrdered By: Luba Cooper on 12-23-2024 ALP [Catalytic activity/Vol] 79 U/L 35-104 [facility] Serum or plasma calcium kanwal urement (mass/volume)Ordered By: Luba Cooper on 12-23-2024 Calcium [Mass/Vol] 9.2 mg/dL 7.6-11.0 [facility] Serum or plasma cholesterol in HDL measurement (mass/volume)Ordered By: Luba Cooper on 12-23-2024 Cholesterol in HDL [Mass/Vol] 69 mg/dL >40 [facility] Comment on above: National Cholesterol Education Program (NCEP) guidelines:<40 mg/dL: Low HDL-cholesterol (major risk factor for CHD)>= 60 mg/dL: High HDL-cholesterol (negative risk factor for CHD)HDL-cholesterol is affected by a number of factors, e.g. smoking, exercise, hormones, sex and age. Serum or plasma cholesterol measurement (mass/volume)Ordered By: Luba Cooper on 12-23-2024 Cholesterol [Mass/Vol] 198 mg/dL <[address] [facility] Comment on above: Cholesterol level, D esirable <200 mg/dLBorderline high cholesterol 200-239 mg/dLHigh cholesterol >=240 mg/dLRecommendations of the NCEP Adult Treatment Panel for the following risk-cutoff thresholds for the [place] population. Serum or plasma urea nitroge n measurement (mass/volume)Ordered By: Luba Cooper on 12-23-2024 Urea nitrogen [Mass/Vol] 7 mg/dL 4-19 [facility] Sodium levelOrdered By: Luba Cooper on 12-23-2024 Sodium [Moles/Vol] 136 mmol/L 133-145 [facility] T4 Free Directon 12-23-2024 T4 FREE DIRECT 1.30 ng/dL Normal 0.76-1.46 [facility] Comment on above: Performed By: #### L 506.0400, L503.0106, L100.0100, L501.9520, L506.1001, L501.5101, L500.4100, L501.9985, L506.0200, L500.4050 #### [facility] [address] [place], [place], [id number] T4 freeOrdered By: Luba tsai on 12-23-2024 Free T4 [Mass/Vol] 1.30 ng/dL 0.76-1.46 [facility] TSH DL <= 0.005 mIU/L QnOrde red By: Luba Cooper on 12-23-2024 TSH Qn 1.510 uIU/mL 0.300-4.200 [facility] Thyroid Stim Hormone (TSH)on 12-23-2024 TSH 1.510 uIU/mL Normal 0.300-4.200 [facility] Comment on above: Performed By: #### L 506.0400, L503.0106, L100.0100, L501.9520, L506.1001, L501.5101, L500.4100, L501.9985, L506.0200, L500.4050 #### [facility] [address] [place], [address] Total proteinOrdered By: Brooke Cooper on 12-23-2024 Protein [Mass/Vol] 6.7 g/dL 5.9-8.4 [facility] Triglycerides measurementOrd ered By: Luba Cooper on 12-23-2024 Triglyceride [Mass/Vol] 91 mg/dL <199 [facility] Comment on above: The drugs N-Acetylcy steine and Metamizole may falsely depress this assay. Normal range: <150 mg/dLBorderline High: 150-199 mg/dLHigh: 200-499 mg/dLVery High: >500 mg/dL Vitamin B12on 12-23-2024 Cobalamin (Vitamin B12) [Mass/Vol] 277 pg/mL Normal 180-914 [facility] Comment on above: Performed By: #### L 506.0400, L503.0106, L100.0100, L501.9520, L506.1001, L501.5101, L500.4100, L501.9985, L506.0200, L500.4050 #### [facility] [address] [place], [place], [address] Vitamin B12 ser/plasOrdered By: Luba Cooper on 12-23-2024 Cobalamin (Vitamin B12) [Mass/Vol] 277 pg/mL 180-914 [facility] Vitamin D,25 Hydroxyon 12-23 Vitamin D 25-OH 22.7 ng/mL Low 30-100 [facility] Comment on above: Result Comment: Tricia min D Status Deficiency: <20 ng/mL (50nmol/L) Insufficiency: 20-30 ng/mL (50-75 nmol/L) Sufficiency: 30-100 ng/mL (75-250 nmol/L) Toxicity: >100 ng/mL (>250 nmol/L) Performed By: #### L 506.0400, L503.0106, L100.0100, L501.9520, L506.1001, L501.5101, L500.4100, L501.9985, L506.0200, L500.4050 #### [facility] [address] [place], [place], [address] White blood cell (WBC) count Ordered By: Luba Cooper on 12-23-2024 WBC (Bld) [#/Vol] 6.4 10*3/uL 4.4-11.0 [facility] MAMMOGRAPHY SCREEN BILATERAL WITH CADon 04-09-2017 MAMMOGRAPHY SCREEN BILATERAL WITH CAD #[id number] - MAMMOGRAPHY SCREEN BILATERAL WITH CADDIGITAL SCREENING MAMMOGRAM WITH CAD: 04/09/2017INDICATION S: Routine screening. Patient has no new complaints. Comparison is made to exams dated: 12/10/2015 mammogram, 02/23/2012 mammogram, and 01/20/2011 mammogram - [facility]. The tissue of both breasts is almost entirely fatty. Current study was also evaluated with a Computer Aided Detection (CAD) system. There is a benign lymph node in the right breast. There also are benign calcifications in the left breast. Additionally, there are benign lymph nodes in the left breast. No significant masses, calcifications, or other findings are seen in either breast. There has been no significant interval change.IMPRESSION:B ENIGNThere is no mammographic evidence of malignancy. A 1 year screening mammogram is recommended. A result summary letter will be sent to the patient. The patient has been entered into a reminder system with the target due date for the next mammogram.Livier stauffer signed by:Samantha Dixon M.D., ma/brie:04/09/2017 13:18:51 letter sent: Category 1-2 Mammogram BI-RADS: 2 Benign Normal [facility] Encounters Encounter Date Encounter Type Care Provider Facility [facility]: [facility] Start[facility] 01-05-[facility] Start: 12-23-2024 End: 12-23-2024 ambulatory Luba Cooper [employer] Work Phone: [facility] Work Phone: Start: 12-23-2024 End: 12-23-2024 Patient encounter procedure Luba Cooper [employer] -Laboratory Work Phone: Start: 12-23-2024 End: 12-23-2024 ambulatory Luba Cooper Facility:[facility] Start: 04-09-2017 Ambulatory [facility] Procedures Date Procedure Procedure Detail Performing Clinician Start: 12-23-2024 Vitamin D, 25-hydrox y measurement Luba Cooper [employer] Work Phone: Comment on above: Vitamin D StatusDefi ciency: <20 ng/mL (50nmol/L)Insufficiency: 20-30 ng/mL (50-75 nmol/L)Sufficiency: 30-100 ng/mL (75-250 nmol/L)Toxicity: >100 ng/mL (>250 nmol/L) Payers Date Payer Category Payer Self-pay Self-pay [employer] [id number] Unknown [id number] Unknown [id number] Unknown [id number] Unknown [id number] Social History Date Type Detail Facility Start: 12-05-2023 Tobacco smoking stat us MAIS Smokes tobacco daily (finding) [facility] Start: 1965 Sex Assigned At Female [facility] Evaluation note Note Date & Type Note Facility Evaluation note No assessment information availa ble [facility] Work Phone: Reason for referral (narrative) Note Date & Type Note Facility Reason for referral (narrative) No reason for referral information available [facility] Work Phone: Summary Purpose Family History No Family History Records FoundNo Family History Records Found Advance Directives No Advanced Directives Records FoundNo Advanced Directives Records Found Chief Complaint and Reason for Visit Chief Complaint Admit Date Hyperlipidemia, unspecified December 23 2:03pm Additional Source Comments INFORMATION SOURCE (unrecogn ized section and content) DATE CREATED AUTHOR 12/30/2017 [facility] DATE CREATED AUTHOR AUTHOR'S JO ANNIZ ATION 12/31/2024 [facility] Care Teams (unrecognized sec tion and content) Team Status: Active Member Role Status Dates LEEANNA Roland Primary Care Provider Active Team Status: Inactive Member Role Status Dates LEEANNA Roland Primary Care Provider Active Start: December 23, 2024 End: December 23, 2024 LEEANNA Roland Attending Provider Active St art: December 23, 2024 End: December 23, 2024 LEEANNA Roland Referring Provider Active St art: December 23, 2024 End: December 23, 2024 Goals (unrecognized section and content) Goals may be documented in a n alternate section FOR RECORDS PERTAINING TO PATIENTS WHO ARE OR HAVE BEEN ENROLLED IN A CHEMICAL DEPENDENCY/SUBSTANCEABUSE PROGRAM, SOME INFORMATION MAY BE OMITTED. This clinical summary was aggregated from multiple sources. Caution should be exercised in using it in the provision of clinical care. This summary normalizes information from multiple sources, and as a consequence, information in this document may materially change the coding, format and clinical context of patient data. In addition, data may be omitted in some cases. CLINICAL DECISIONS SHOULD BE BASED ON THE PRIMARY CLINICAL RECORDS. [facility] [employer] provides no warranty or guarantee of the accuracy or completeness of information in this document.
--- OUTSIDE RECORDS SUMMARY | 2025-01-05 07:51 | XMS RPT_ITS | CCD ---
Author Organization [facility] Care Team Providers Care Cotton Weigher Name Role Phone KHADAR SERA Unavailable Unavailable SERA RUBALCAVA Unavailable Unavailable KHADAR, SERA Unavailable Unavailable Swihart AUDIT MANAGER-C, Luba Primary Care Provider [phone] Swiorquideat AUDIT MANAGER-C, Luba Attending Provider Swiorquideat AUDIT MANAGER-C, Luba Referring Provider [phone] Constantinot, Luba Primary Care Unavailable Constantinot, Luba Attending Unavailable Swihart, Luba Referring Unavailable Swihart, Luba Primary Care Unavailable Sheyla Squires Attending Unavailable Sheyla Squires Referring Unavailable Swihart, Luba Attending Unavailable GeovannaerSheyla pérez Referring Unavailable Swihart, Luba Primary Care Unavailable Allergies Allergy Classification Reported Allergen(s) Allergy Type Date of Onset Reaction(s) Facility (1 source) acetaminophen / oxyCODONE; Translations: [OXYCODONE-ACETAM INOPHEN] Drug Allergy 0 AOF [facility] (3 sources) azithromycin; Translations: [AZITHROMYCIN] Drug Allergy 4 AOF, Itching [facility] [employer] Repository (3 sources) clarithromycin; Translations: [CLARITHROMYCIN] Drug Allergy 0 AOF, PT UNSURE OF REACTION [facility] (3 sources) omeprazole; Translations: [OMEPRAZOLE] Drug Allergy 0 [facility], PT [facility] [employer] Rep[facility] (3 sources) Penicillins; Translations: [PENICILLINS] Propensity to adverse reactions to drug (disorder) 0 Swelling [facility] [employer] Repository (1 source) Acetaminophen Drug Allergy 4 Itching [facility] (1 source) oxyCODONE Drug Allergy 4 Itching [facility] (1 source) Acetaminophen Drug Allergy 4 [facility] Repository (1 source) oxyCODONE Drug Allergy 4 [facility] Repository Medications Current Medications Medication Drug Class(es) Dates Sig (Normalized) Sig (Original) acetaminophen 325 mg / HYDROcodone bitartrate 7.5 mg oral tablet (1 source) Opioid Agonist Start: 12-05-2023 Hydrocodone-Acetamin ophen 7.5-325 mg tablet Active 1 {tbl} PO 3 TIMES DAILY NEEDED as needed for pain December 05, 2023 12:00am [id number] 200 actuat albuterol 0.09 mg/actuat metered dose [...] L501.5101on 12-25-2024 GGTP 12 IU/L Normal 0-60 [facility] Comment on above: Result Comment: Perf ormed at: CB - [facility] [address] [id number] Health Information Assistant: Sumanth Alcala PhD, Phone: [phone] Performed By: #### L 506.0400, L503.0106, L100.0100, L501.9520, L506.1001, L501.5101, L500.4100, L501.9985, L506.0200, L500.4050 #### [facility] [address] [place], [address] Absolute lymphocyte countOrd ered By: Luba Cooper on 12-23-2024 Lymphocytes Auto (Unsp spec) [#/Vol] 1.35 10*3/uL 0.83-4.51 [facility] Absolute neutrophil countOrd ered By: Luba Cooper on 12-23-2024 Neutrophils (Bld) [#/Vol] 4.6 10*3/uL 2.0-7.7 [facility] Anion gap in Serum or Plasma Ordered By: Luba Cooper on 12-23-2024 Anion gap [Moles/Vol] 13 mmol/L 5- [facility] Automated lymphocyte count a s percentage of total leukocytesOrdered By: Luba Cooper on 12-23-2024 Lymphocytes/100 WBC Auto (Unsp spec) 21.0 % [facility] BUN/creatinine ratioOrdered By: Luba Cooper on 12-23-2024 Urea nitrogen/Creatinine [Mass ratio] 10.9 mg/mg 04-24 [facility] Basophil percentageOrdered B y: Luba Cooper on 12-23-2024 Basophils/100 WBC (Bld) 0.5 % 0-1 [facility] Bilirubin, totalOrdered By: Luba Cooper on 12-23-2024 Bilirubin [Mass/Vol] 0.22 mg/dL 0.00-1.30 [facility] CBC W/Diff, Automatedon 12-05 Absolute Lymph 1.35 X10 3/uL Normal 0.83-4.51 [facility] Comment on above: Performed By: #### L 506.0400, L503.0106, L100.0100, L501.9520, L506.1001, L501.5101, L500.4100, L501.9985, L506.0200, L500.4050 #### [facility] [address] [place], [place], [id number] Absolute Neut 4.6 X10 3/uL Normal 2.0-7.7 [facility] Comment on above: Performed By: #### L 506.0400, L503.0106, L100.0100, L501.9520, L506.1001, L501.5101, L500.4100, L501.9985, L506.0200, L500.4050 #### [facility] [address] [place], [address] Basophils/100 WBC (Bld) 0.5 % Normal 0-1 [facility] Comment on above: Performed By: #### L 506.0400, L503.0106, L100.0100, L501.9520, L506.1001, L501.5101, L500.4100, L501.9985, L506.0200, L500.4050 #### [facility] [address] [place], [place], [phone] (101) Eosinophils/100 WBC (Bld) 0.0 % Normal 0-5 [facility] Comment on above: Performed By: #### L 506.0400, L503.0106, L100.0100, L501.9520, L506.1001, L501.5101, L500.4100, L501.9985, L506.0200, L500.4050 #### [facility] [address] [place], [place], [phone] (001) Erythrocyte distribution width (RBC) [Ratio] 13.7 % Normal 11.6-14.6 [facility] Comment on above: Performed By: #### L 506.0400, L503.0106, L100.0100, L501.9520, L506.1001, L501.5101, L500.4100, L501.9985, L506.0200, L500.4050 #### [facility] [address] [place], [place], [phone] (336) Hematocrit (Bld) [Volume fraction] 40.2 % Normal 37-47 [facility] Comment on above: Performed By: #### L 506.0400, L503.0106, L100.0100, L501.9520, L506.1001, L501.5101, L500.4100, L501.9985, L506.0200, L500.4050 #### [facility] [address] [place], [address] (579) Hemoglobin (Bld) [Mass/Vol] 13.7 g/dL Normal 12.0-15.0 [facility] Comment on above: Performed By: #### L 506.0400, L503.0106, L100.0100, L501.9520, L506.1001, L501.5101, L500.4100, L501.9985, L506.0200, L500.4050 #### [facility] [address] [place], [address] IG% 0.300 Normal 0.0-0.9 [facility] Comment on above: Result Comment: IG% - Immature Granulocytes (promyelocytes, myelocytes and metamyelocytes) > 1% indicates that a LEFT SHIFT is Present. Performed By: #### L 506.0400, L503.0106, L100.0100, L501.9520, L506.1001, L501.5101, L500.4100, L501.9985, L506.0200, L500.4050 #### [facility] [address] [place], [address] Lymphocytes/100 WBC (Bld) 21.0 % Normal 19-41 [facility] Comment on above: Performed By: #### L 506.0400, L503.0106, L100.0100, L501.9520, L506.1001, L501.5101, L500.4100, L501.9985, L506.0200, L500.4050 #### [facility] [address] [place], [address] MCH (RBC) [Entitic mass] 29.7 pg Normal 27.0-32.0 [facility] Comment on above: Performed By: #### L 506.0400, L503.0106, L100.0100, L501.9520, L506.1001, L501.5101, L500.4100, L501.9985, L506.0200, L500.4050 #### [facility] [address] [place], [address] MCHC (RBC) [Mass/Vol] 34.1 g/dL Normal 32-36 [facility] Comment on above: Performed By: #### L 506.0400, L503.0106, L100.0100, L501.9520, L506.1001, L501.5101, L500.4100, L501.9985, L506.0200, L500.4050 #### [facility] [address] [place], [address] MCV (RBC) [Entitic vol] 87.0 fL Normal 81-99 [facility] Comment on above: Performed By: #### L 506.0400, L503.0106, L100.0100, L501.9520, L506.1001, L501.5101, L500.4100, L501.9985, L506.0200, L500.4050 #### [facility] [address] [place], [address] Monocytes/100 WBC (Bld) 7.3 % Normal 0-10 [facility] Comment on above: Performed By: #### L 506.0400, L503.0106, L100.0100, L501.9520, L506.1001, L501.5101, L500.4100, L501.9985, L506.0200, L500.4050 #### [facility] [address] [place], [address] Neutrophils/100 WBC (Bld) 70.9 % High 47-70 [facility] Comment on above: Performed By: #### L 506.0400, L503.0106, L100.0100, L501.9520, L506.1001, L501.5101, L500.4100, L501.9985, L506.0200, L500.4050 #### [facility] [address] [place], [address] Nucleated RBC (Bld) [#/Vol] 0 10*3/uL Normal 0-5 [facility] Comment on above: Performed By: #### L 506.0400, L503.0106, L100.0100, L501.9520, L506.1001, L501.5101, L500.4100, L501.9985, L506.0200, L500.4050 #### [facility] [address] [place], [address] Platelet mean volume (Bld) [Entitic vol] 8.8 fL Normal 6.2-12.0 [facility] Comment on above: Performed By: #### L 506.0400, L503.0106, L100.0100, L501.9520, L506.1001, L501.5101, L500.4100, L501.9985, L506.0200, L500.4050 #### [facility] [address] [place], [address] Platelets (Bld) [#/Vol] 312 10*3/uL Normal 150-450 [facility] Comment on above: Performed By: #### L 506.0400, L503.0106, L100.0100, L501.9520, L506.1001, L501.5101, L500.4100, L501.9985, L506.0200, L500.4050 #### [facility] [address] [place], [address] RBC (Bld) [#/Vol] 4.62 10*6/uL Normal 4.2-5.4 [facility] Comment on above: Performed By: #### L 506.0400, L503.0106, L100.0100, L501.9520, L506.1001, L501.5101, L500.4100, L501.9985, L506.0200, L500.4050 #### [facility] [address] [place], [address] RDW SD 43.8 fl Normal 35.1-43.9 [facility] Comment on above: Performed By: #### L 506.0400, L503.0106, L100.0100, L501.9520, L506.1001, L501.5101, L500.4100, L501.9985, L506.0200, L500.4050 #### [facility] [address] [place], [address] WBC (Bld) [#/Vol] 6.4 10*3/uL Normal 4.4-11.0 [facility] Comment on above: Performed By: #### L 506.0400, L503.0106, L100.0100, L501.9520, L506.1001, L501.5101, L500.4100, L501.9985, L506.0200, L500.4050 #### [facility] [address] [place], [place], [id number] Calculated very low density lipoprotein (VLDL) cholesterol measurementOrdered By: Luba Cooper on 12-23-2024 Calculated very low density lipoprotein (VLDL) cholesterol measurement 18 mg/dL 5-40 [facility] Carbon dioxide, total [Moles /volume] in Central venous bloodOrdered By: Luba Cooper on 12-23-2024 CO2 [Moles/Vol] 21.8 mmol/L 21.0-32.0 [facility] Chloride assayOrdered By: Jess Licea on 12-23-2024 Chloride [Moles/Vol] 101 mmol/L 98-108 [facility] Comprehensive Metabolic Prof ilon 12-23-2024 Albumin [Mass/Vol] 4.2 g/dL Normal 3.4-4.8 [facility] Comment on above: Performed By: #### L 506.0400, L503.0106, L100.0100, L501.9520, L506.1001, L501.5101, L500.4100, L501.9985, L506.0200, L500.4050 #### [facility] [address] [place], [place], [id number] Albumin/Globulin [Mass ratio] 1.6 {ratio} Normal 0.9-2.4 [facility] Comment on above: Performed By: #### L 506.0400, L503.0106, L100.0100, L501.9520, L506.1001, L501.5101, L500.4100, L501.9985, L506.0200, L500.4050 #### [facility] [address] [place], [place], [phone] (313) ALK PHOS 79 U/L Normal 35-104 [facility] Comment on above: Performed By: #### L 506.0400, L503.0106, L100.0100, L501.9520, L506.1001, L501.5101, L500.4100, L501.9985, L506.0200, L500.4050 #### [facility] [address] [place], [place], [phone] ALT [Catalytic activity/Vol] 13 U/L Normal <=34 [facility] Comment on above: Performed By: #### L 506.0400, L503.0106, L100.0100, L501.9520, L506.1001, L501.5101, L500.4100, L501.9985, L506.0200, L500.4050 #### [facility] [address] [place], [place], [phone] AST [Catalytic activity/Vol] 17 U/L Normal <=31 [facility] Comment on above: Performed By: #### L 506.0400, L503.0106, L100.0100, L501.9520, L506.1001, L501.5101, L500.4100, L501.9985, L506.0200, L500.4050 #### [facility] [address] [place], [address] Bilirubin [Mass/Vol] 0.22 mg/dL Normal 0.00-1.30 [facility] Comment on above: Performed By: #### L 506.0400, L503.0106, L100.0100, L501.9520, L506.1001, L501.5101, L500.4100, L501.9985, L506.0200, L500.4050 #### [facility] [address] [place], [address] BUN/CRE 10.9 RATIO Normal 10-20 [facility] Comment on above: Performed By: #### L 506.0400, L503.0106, L100.0100, L501.9520, L506.1001, L501.5101, L500.4100, L501.9985, L506.0200, L500.4050 #### [facility] [address] [place], [address] Calcium [Mass/Vol] 9.2 mg/dL Normal 7.6-11.0 [facility] Comment on above: Performed By: #### L 506.0400, L503.0106, L100.0100, L501.9520, L506.1001, L501.5101, L500.4100, L501.9985, L506.0200, L500.4050 #### [facility] [address] [place], [address] Chloride [Moles/Vol] 101 mmol/L Normal 98-108 [facility] Comment on above: Performed By: #### L 506.0400, L503.0106, L100.0100, L501.9520, L506.1001, L501.5101, L500.4100, L501.9985, L506.0200, L500.4050 #### [facility] [address] [place], [place], [address] CO2 [Moles/Vol] 21.8 mmol/L Normal 21.0-32.0 [facility] Comment on above: Performed By: #### L 506.0400, L503.0106, L100.0100, L501.9520, L506.1001, L501.5101, L500.4100, L501.9985, L506.0200, L500.4050 #### [facility] [address] [place], [place], [id number] Creatinine [Mass/Vol] 0.62 mg/dL Low 0.70-1.20 [facility] Comment on above: Performed By: #### L 506.0400, L503.0106, L100.0100, L501.9520, L506.1001, L501.5101, L500.4100, L501.9985, L506.0200, L500.4050 #### [facility] [address] [place], [place], [id number] GAP 13 Normal 5-15 [facility] Comment on above: Performed By: #### L 506.0400, L503.0106, L100.0100, L501.9520, L506.1001, L501.5101, L500.4100, L501.9985, L506.0200, L500.4050 #### [facility] [address] [place], [place], [id number] GFR/1.73 sq M.predicted among non-blacks MDRD (S/P/Bld) [Vol rate/Area] 102 mL/min/{1.73_m2} Normal >60 [facility] Comment on above: Result Comment: mL/m in/1.73m2 CKD-EPI Creatinine Equation (2020) Performed By: #### L 506.0400, L503.0106, L100.0100, L501.9520, L506.1001, L501.5101, L500.4100, L501.9985, L506.0200, L500.4050 #### [facility] [address] [place], [address] Globulin (S) [Mass/Vol] 2.6 g/dL Normal 2.2-4.2 [facility] Comment on above: Performed By: #### L 506.0400, L503.0106, L100.0100, L501.9520, L506.1001, L501.5101, L500.4100, L501.9985, L506.0200, L500.4050 #### [facility] [address] [place], [address] Glucose [Mass/Vol] 99 mg/dL Normal 70-99 [facility] Comment on above: Performed By: #### L 506.0400, L503.0106, L100.0100, L501.9520, L506.1001, L501.5101, L500.4100, L501.9985, L506.0200, L500.4050 #### [facility] [address] [place], [place], [phone] (023) Potassium [Moles/Vol] 3.6 mmol/L Normal 3.3-5.1 [facility] Comment on above: Performed By: #### L 506.0400, L503.0106, L100.0100, L501.9520, L506.1001, L501.5101, L500.4100, L501.9985, L506.0200, L500.4050 #### [facility] [address] [place], [address] Sodium [Moles/Vol] 136 mmol/L Normal 133-145 [facility] Comment on above: Performed By: #### L 506.0400, L503.0106, L100.0100, L501.9520, L506.1001, L501.5101, L500.4100, L501.9985, L506.0200, L500.4050 #### [facility] [address] [place], [address] T PROT 6.7 g/dL Normal 5.9-8.4 [facility] Comment on above: Performed By: #### L 506.0400, L503.0106, L100.0100, L501.9520, L506.1001, L501.5101, L500.4100, L501.9985, L506.0200, L500.4050 #### [facility] [address] [place], [address] Urea nitrogen [Mass/Vol] 7 mg/dL Normal 4-19 [facility] Comment on above: Performed By: #### L 506.0400, L503.0106, L100.0100, L501.9520, L506.1001, L501.5101, L500.4100, L501.9985, L506.0200, L500.4050 #### [facility] [address] [place], [place], [phone] Eosinophil percentageOrdered By: Luba Cooper on 12-23-2024 Eosinophils/100 WBC (Bld) 0.0 % 0-5 [facility] Erythrocyte distribution wid th ratioOrdered By: Luba Cooper on 12-23-2024 Erythrocyte distribution width (RBC) [Ratio] 13.7 % 11.6-14.6 [facility] Erythrocyte distribution wid th standard deviationOrdered By: Luba Cooper on 12-23-2024 Erythrocyte distribution width (RBC) [Ratio] 43.8 fl 35.1-43.9 [facility] Folate [Moles/volume] in Ser um or PlasmaOrdered By: Luba Cooper on 12-23-2024 Folate [Moles/Vol] 3.65 ng/mL Low 4.60-34.80 [facility] Comment on above: Hemolysis, Results w ill be affected, Requires Recollection. Folates,Serum (Folic Acid)on 12-23-2024 FOLATES,SERUM 3.65 ng/mL Low 4.60-34.80 [facility] Comment on above: Order Comment: N Result Comment: Hemo lysis, Results will be affected, Requires Recollection. Performed By: #### L 506.0400, L503.0106, L100.0100, L501.9520, L506.1001, L501.5101, L500.4100, L501.9985, L506.0200, L500.4050 #### [facility] [address] [facility] [facility] [facility] [place], [place], [phone] Gamma glutamyl transferase ( GGT) measurementOrdered By: Luba Cooper on 12-23-2024 Amylase [Catalytic activity/Vol] 12 U/L 0-60 [facility] Comment on above: Performed at: [place] [id number] Director: Sumanth Alcala PhD, Phone: [phone] Glomerular filtration rate ( GFR) estimation/1.73 sq m using serum, plasma, or whole bOrdered By: Luba Cooper on 12-23-2024 GFR/1.73 sq M.predicted among non-blacks MDRD (S/P/Bld) [Vol rate/Area] 102 mL/min/{1.73_m2} >60 [facility] Comment on above: mL/min/1.73m2 CKD-EP I Creatinine Equation (2020) Hematocrit Auto (Bld) [Volum e fraction]Ordered By: Luba Cooper on 12-23-2024 Hematocrit (Bld) [Volume fraction] 40.2 % 37-47 [facility] Hemoglobin A1c percentageOrd ered By: Luba Cooper on 12-23-2024 HbA1c (Bld) [Mass fraction] 5.1 % Normal <=5.6 [facility] Comment on above: Normal < 5.7 % Predi abetic 5.7 - 6.4 % Diabetic >or= 6.5 % Please note range changes. Result Comment: Norm al < 5.7 % Prediabetic 5.7 - 6.4 % Diabetic >or= 6.5 % Please note range changes. Performed By: #### L 506.0400, L503.0106, L100.0100, L501.9520, L506.1001, L501.5101, L500.4100, L501.9985, L506.0200, L500.4050 #### [facility] [address] [place], [address] Hemoglobin measurementOrdere d By: Luba Cooper on 12-23-2024 Hemoglobin (Bld) [Mass/Vol] 13.7 g/dL 12.0-15.0 [facility] Immature granulocytes/100 WB C Auto (Bld)Ordered By: Luba Cooper on 12-23-2024 Immature granulocytes/100 WBC (Bld) 0.300 % 0.0-0.9 [facility] Comment on above: IG% - Immature Granu locytes (promyelocytes, myelocytes and metamyelocytes) > 1% indicates that a LEFT SHIFT is Present. LDL calc ser/plasOrdered By: Luba Cooper on 12-23-2024 Cholesterol in LDL [Mass/Vol] 111 mg/dL [facility] Comment on above: Volpzzlecd=990-621 m g/dL & Higher Ltol=351 mg/dL or greater Laboratory - Chemistry and C hemistry - challengeOrdered By: Luba Cooper on 12-23-2024 AST [Catalytic activity/Vol] 17 U/L <32 [facility] Lipid Profileon 12-23-2024 CHOL:HDL 2.89 Normal [facility] Comment on above: Performed By: #### L 506.0400, L503.0106, L100.0100, L501.9520, L506.1001, L501.5101, L500.4100, L501.9985, L506.0200, L500.4050 #### [facility] [address] [place], [place], [phone] Cholesterol [Mass/Vol] 198 mg/dL Normal <=200 [facility] Comment on above: Result Comment: Chol esterol level, Desirable <200 mg/dL Borderline high cholesterol 200-239 mg/dL High cholesterol >=240 mg/dL Recommendations of the NCEP Adult Treatment Panel for the following risk-cutoff thresholds for the [place] population. Performed By: #### L 506.0400, L503.0106, L100.0100, L501.9520, L506.1001, L501.5101, L500.4100, L501.9985, L506.0200, L500.4050 #### [facility] [address] [place], [address] Cholesterol in HDL [Mass/Vol] 69 mg/dL Normal [facility] Comment on above: Result Comment: Fun[place] onal Cholesterol Education Program (NCEP) guidelines: <40 mg/dL: Low HDL-cholesterol (major risk factor for CHD) >= 60 mg/dL: High HDL-cholesterol (negative risk factor for CHD) HDL-cholesterol is affected by a number of factors, e.g. smoking, exercise, hormones, sex and age. Performed By: #### L 506.0400, L503.0106, L100.0100, L501.9520, L506.1001, L501.5101, L500.4100, L501.9985, L506.0200, L500.4050 #### [facility] [address] [place], [address] Cholesterol in LDL [Mass/Vol] 111 mg/dL Normal [facility] Comment on above: Result Comment: Bord zybeou=868-862 mg/dL Higher Purs=227 mg/dL or greater Performed By: #### L 506.0400, L503.0106, L100.0100, L501.9520, L506.1001, L501.5101, L500.4100, L501.9985, L506.0200, L500.4050 #### [facility] [address] [place], [address] Cholesterol in VLDL [Mass/Vol] 18 mg/dL Normal 5-40 [facility] Comment on above: Performed By: #### L 506.0400, L503.0106, L100.0100, L501.9520, L506.1001, L501.5101, L500.4100, L501.9985, L506.0200, L500.4050 #### [facility] [address] [place], [place], [id number] Triglyceride [Mass/Vol] 91 mg/dL Normal [facility] Comment on above: Result Comment: The drugs N-Acetylcysteine and Metamizole may falsely depress this assay. Normal range: <150 mg/dL Borderline High: 150-199 mg/dL High: 200-499 mg/dL Very High: >500 mg/dL Performed By: #### L 506.0400, L503.0106, L100.0100, L501.9520, L506.1001, L501.5101, L500.4100, L501.9985, L506.0200, L500.4050 #### [facility] [address] [place], [place], [id number] MCV (mean corpuscular volume ) determinationOrdered By: Luba Cooper on 12-23-2024 MCV (RBC) [Entitic vol] 87.0 fL 81-99 [facility] Mean corpuscular hemoglobin (MCH) determinationOrdered By: Luba Cooper on 12-23-2024 MCH (RBC) [Entitic mass] 29.7 pg 27.0-32.0 [facility] Mean corpuscular hemoglobin concentration (MCHC) determinationOrdered By: Luba Cooper on 12-23-2024 MCHC (RBC) [Mass/Vol] 34.1 g/dL 32-36 [facility] Mean platelet volume determi nationOrdered By: Luba Cooper on 12-23-2024 Platelet mean volume (Bld) [Entitic vol] 8.8 fL 6.2-12.0 [facility] Monocyte percentageOrdered B y: Luba Cooper on 12-23-2024 Monocytes/100 WBC (Bld) 7.3 % 0-10 [facility] Neutrophil percentageOrdered By: Luba Cooper on 12-23-2024 Neutrophils/100 WBC (Bld) 70.9 % High 47-70 [facility] Nucleated red blood cell per centageOrdered By: Luba Cooper on 12-23-2024 Nucleated RBC/100 WBC (Bld) [Ratio] 0 % 0-5 [facility] Platelet countOrdered By: Jess Licea on 12-23-2024 Platelets (Bld) [#/Vol] 312 10*3/uL 150-450 [facility] Potassium measurement (mass/ volume)Ordered By: Luba Cooper on 12-23-2024 Potassium (Unsp spec) [Mass/Vol] 3.6 mmol/L 3.3-5.1 [facility] RBC Auto (Bld) [#/Vol]Ordere d By: Luba Cooper on 12-23-2024 RBC (Bld) [#/Vol] 4.62 10*6/uL 4.2-5.4 [facility] Screening total cholesterol/ high density lipoprotein (HDL) cholesterol ratioOrdered By: Luba Cooper on 12-23-2024 Cholesterol.total/Cholest sabas in HDL [Mass ratio] 2.89 {ratio} [facility] [facility] Serum creatinine measurement (mass/volume)Ordered By: Luba Cooper on 12-23-2024 Creatinine [Mass/Vol] 0.62 mg/dL Low 0.70-1.20 [facility] Serum globulin measurementOr dered By: Luba Cooper on 12-23-2024 Globulin (S) [Mass/Vol] 2.6 g/dL 2.2-4.2 [facility] Serum glucose measurement (m ass/volume)Ordered By: Luba Cooper on 12-23-2024 Glucose [Mass/Vol] 99 mg/dL 70-99 [facility] Serum or plasma alanine peterson otransferase (ALT) measurementOrdered By: Luba Cooper on 12-23-2024 ALT [Catalytic activity/Vol] 13 U/L <35 [facility] Serum or plasma albumin kanwal urement (mass/volume)Ordered By: Luba Cooper on 12-23-2024 Albumin [Mass/Vol] 4.2 g/dL 3.4-4.8 [facility] Serum or plasma albumin/glob ulin mass ratioOrdered By: Luba Cooper on 12-23-2024 Albumin/Globulin [Mass ratio] 1.6 {ratio} 0.9-2.4 [facility] Serum or plasma alkaline kylee sphatase measurementOrdered By: Luba Cooper on 12-23-2024 ALP [Catalytic activity/Vol] 79 U/L 35-104 [facility] Serum or plasma calcium kanwal urement (mass/volume)Ordered By: Luba Cooper on 12-23-2024 Calcium [Mass/Vol] 9.2 mg/dL 7.6-11.0 [facility] Serum or plasma cholesterol in HDL measurement (mass/volume)Ordered By: Luba Cooper on 12-23-2024 Cholesterol in HDL [Mass/Vol] 69 mg/dL >40 [facility] Comment on above: National Cholesterol Education Program (NCEP) guidelines:<40 mg/dL: Low HDL-cholesterol (major risk factor for CHD)>= 60 mg/dL: High HDL-cholesterol (negative risk factor for CHD)HDL-cholesterol is affected by a number of factors, e.g. smoking, exercise, hormones, sex and age. Serum or plasma cholesterol measurement (mass/volume)Ordered By: Luba Cooper on 12-23-2024 Cholesterol [Mass/Vol] 198 mg/dL <201 [facility] Comment on above: Cholesterol level, D esirable <200 mg/dLBorderline high cholesterol 200-239 mg/dLHigh cholesterol >=240 mg/dLRecommendations of the NCEP Adult Treatment Panel for the following risk-cutoff thresholds for the [place] population. Serum or plasma urea nitroge n measurement (mass/volume)Ordered By: uLba Cooper on 12-23-2024 Urea nitrogen [Mass/Vol] 7 mg/dL 4-19 [facility] Sodium levelOrdered By: Luba Cooper on 12-23-2024 Sodium [Moles/Vol] 136 mmol/L 133-145 [facility] T4 Free Directon 12-23-2024 T4 FREE DIRECT 1.30 ng/dL Normal 0.76-1.46 [facility] Comment on above: Performed By: #### L 506.0400, L503.0106, L100.0100, L501.9520, L506.1001, L501.5101, L500.4100, L501.9985, L506.0200, L500.4050 #### [facility] [address] [place], [place], [id number] T4 freeOrdered By: Luba tsai on 12-23-2024 Free T4 [Mass/Vol] 1.30 ng/dL 0.76-1.46 [facility] TSH DL <= 0.005 mIU/L QnOrde red By: Luba Cooper on 12-23-2024 TSH Qn 1.510 uIU/mL 0.300-4.200 [facility] Thyroid Stim Hormone (TSH)on 12-23-2024 TSH 1.510 uIU/mL Normal 0.300-4.200 [facility] Comment on above: Performed By: #### L 506.0400, L503.0106, L100.0100, L501.9520, L506.1001, L501.5101, L500.4100, L501.9985, L506.0200, L500.4050 #### [facility] [address] [place], [address] Total proteinOrdered By: Brooke Cooper on 12-23-2024 Protein [Mass/Vol] 6.7 g/dL 5.9-8.4 [facility] Triglycerides measurementOrd ered By: Luba Cooper on 12-23-2024 Triglyceride [Mass/Vol] 91 mg/dL <199 [facility] Comment on above: The drugs N-Acetylcy steine and Metamizole may falsely depress this assay. Normal range: <150 mg/dLBorderline High: 150-199 mg/dLHigh: 200-499 mg/dLVery High: >500 mg/dL Vitamin B12on 12-23-2024 Cobalamin (Vitamin B12) [Mass/Vol] 277 pg/mL Normal 180-914 [facility] Comment on above: Performed By: #### L 506.0400, L503.0106, L100.0100, L501.9520, L506.1001, L501.5101, L500.4100, L501.9985, L506.0200, L500.4050 #### [facility] [address] [place], [place], [address] Vitamin B12 ser/plasOrdered By: Luba Cooper on 12-23-2024 Cobalamin (Vitamin B12) [Mass/Vol] 277 pg/mL 180-914 [facility] Vitamin D,25 Hydroxyon 12-23 Vitamin D 25-OH 22.7 ng/mL Low 30-100 [facility] Comment on above: Result Comment: Tricia min D Status Deficiency: <20 ng/mL (50nmol/L) Insufficiency: 20-30 ng/mL (50-75 nmol/L) Sufficiency: 30-100 ng/mL (75-250 nmol/L) Toxicity: >100 ng/mL (>250 nmol/L) Performed By: #### L 506.0400, L503.0106, L100.0100, L501.9520, L506.1001, L501.5101, L500.4100, L501.9985, L506.0200, L500.4050 #### [facility] [address] [place], [place], [address] White blood cell (WBC) count Ordered By: Luba Cooper on 12-23-2024 WBC (Bld) [#/Vol] 6.4 10*3/uL 4.4-11.0 [facility] MAMMOGRAPHY SCREEN BILATERAL WITH CADon 04-09-2017 MAMMOGRAPHY SCREEN BILATERAL WITH CAD #[id number] - MAMMOGRAPHY SCREEN BILATERAL WITH CADDIGITAL SCREENING MAMMOGRAM WITH CAD: 04/09/2017INDICATION S: Routine screening. Patient has no new complaints. Comparison is made to exams dated: 12/10/2015 mammogram, 02/23/2012 mammogram, and 01/20/2011 mammogram - [facility]. The tissue of both breasts is [...] Category 1-2 Mammogram BI-RADS: 2 Benign Normal [facility] Encounters Encounter Date Encounter Type Care Provider Facility [facility]: [facility] Start: 01-05-2025 ambulatory [facility] Start: 12-23-2024 End: 12-23-2024 ambulatory Luba Cooper AUDIT MANAGER-C Work Phone: [facility] Work Phone: Start: 12-23-2024 End: 12-23-2024 Patient encounter procedure Luba Cooper AUDIT MANAGER-C -Laboratory Work Phone: Start: 12-23-2024 End: 12-23-2024 ambulatory Luba Cooper Facility:[facility] Start: 04-09-2017 Ambulatory [facility] Procedures Date Procedure Procedure Detail Performing Clinician Start: 12-23-2024 Vitamin D, 25-hydrox y measurement Luba Cooper AUDIT MANAGER-C Work Phone: Comment on above: Vitamin D StatusDefi ciency: <20 ng/mL (50nmol/L)Insufficiency: 20-30 ng/mL (50-75 nmol/L)Sufficiency: 30-100 ng/mL (75-250 nmol/L)Toxicity: >100 ng/mL (>250 nmol/L) Payers Date Payer Category Payer Self-pay Self-pay S[employer]Y INSURANCE [id number] Unknown [id number] Unknown [id number] Unknown [id number] Unknown [id number] Social History Date Type Detail Facility Start: 12-05-2023 Tobacco smoking stat us [facility] Smokes tobacco daily (finding) [facility] Start: 1965 Sex Assigned At Female [facility] Evaluation note Note Date & Type Note Facility Evaluation note No assessment information availa ble [facility] Work Phone: Reason for referral (narrative) Note Date & Type Note Facility Reason for referral (narrative) No reason for referral information available [facility] Work Phone: Summary Purpose Family History No [...] CREATED AUTHOR AUTHOR'S JO ANNIZ ATION 12/31/2024 [facility] Care Teams (unrecognized sec tion and content) [...] BE BASED ON THE PRIMARY CLINICAL RECORDS. [facility]. provides no warranty or guarantee of the accuracy or completeness of information in this document.
== END | disposition home or self-care (01) ==
PROVIDERS: PCP Nurse Practitioner Family; Referring Provider Nurse Practitioner Family; Visit Provider Nurse Practitioner Family
DX: Z12.31 Encounter for screening mammogram for malignant neoplasm of breast (principal)
CPT/HCPCS: 77063; 77067

== ENCOUNTER → 2025-01-12 | Outpatient (CLI) | payer SELFPAY ==
--- NOTE | 2025-01-12 18:54 | CT_ITS ---
PROCEDURE: BRAIN/HEAD WITHOUT CONTRAST 01/12/2025 REASON FOR EXAM: MASS TECHNIQUE: BRAIN/HEAD WITHOUT CONTRAST Coronal and Sagittal reconstruction series were provided. One or more dose reduction techniques were used (e.g., Automated exposure control, adjustment of the mA and/or kV according to patient size, use of iterative reconstruction technique. RADIATION DOSE SUMMARY: CTDlvol: 44.99 mGy DLP: 779.24 mGycm COMPARISON: None available. FINDINGS: No acute intracranial hemorrhage, extra-axial collection, mass effect or evidence of acute infarct. Ventricular and sulcal size and configuration are within normal limits. Unremarkable orbits. Intact skull base and calvarium. Peripheral mucosal thickening in the right maxillary sinus, and left maxillary sinus mucous retention cyst/polyp. No fluid levels. Midline nasal septum. Postoperative changes of prior right canal wall up mastoidectomy with well-aerated mastoid bowl and middle ear cavity. CT/Brain/Head without Contrast IMPRESSION: No acute intracranial abnormality. Reading Location: [id number]
== END | disposition home or self-care (01) ==
PROVIDERS: PCP Nurse Practitioner Family; Referring Provider Nurse Anesthetist, Certified Registered; Visit Provider Nurse Practitioner Family
DX: R22.0 Localized swelling, mass and lump, head (principal)
CPT/HCPCS: 70450

== ENCOUNTER → 2025-01-18 | Outpatient (CLI) | payer SELFPAY ==
--- NOTE | 2025-01-18 13:56 | US_ITS ---
PROCEDURE: BREAST LIMITED UNILATERAL 01/18/2025 REASON FOR EXAM: 59-year-old female presents for follow-up of the right breast findings seen on examination of 01/05/2025. No family history of breast cancer. COMPARISON: 01/05/2025, 02/20/2020. TECHNIQUE: BREAST LIMITED UNILATERAL FINDINGS: Follow-up examination performed for the right breast findings seen on examination of 01/05/2025. On the present examination, there is a an irregular cystic solid mass in the retroareolar right breast, measuring 1.1 x 1.1 x 0.9 cm. There is associated vascular flow within the mass. There are no right axillary lymphadenopathy. US/Breast Limited Unilateral IMPRESSION: Irregular retroareolar right breast masses highly suggestive for malignancy. T issue sampling with ultrasound-guided core needle biopsy is recommended. BI-RADS 5: HIGHLY SUGGESTIVE OF MALIGNANCY. RECOMMENDATION: Ultrasound Recommended Reading Location: [id number]
--- NOTE | 2025-01-18 13:56 | US_ITS ---
PROCEDURE: BREAST LIMITED UNILATERAL 01/18/2025 REASON FOR EXAM: 59-year-old female presents for follow-up of the right breast findings seen on examination of 01/05/2025. No family history of breast cancer. COMPARISON: 01/05/2025, 02/20/2020. TECHNIQUE: BREAST LIMITED UNILATERAL FINDINGS: Follow-up examination performed for the right breast findings seen on examination of 01/05/2025. On the present examination, there is a an irregular cystic solid mass in the retroareolar right breast, measuring 1.1 x 1.1 x 0.9 cm. There is associated vascular flow within the mass. There are no right axillary lymphadenopathy. US/Breast Limited Unilateral IMPRESSION: Irregular retroareolar right breast masses highly suggestive for malignancy. T issue sampling with ultrasound-guided core needle biopsy is recommended. BI-RADS 5: HIGHLY SUGGESTIVE OF MALIGNANCY. RECOMMENDATION: Ultrasound Recommended Reading Location: [id number]
== END | disposition home or self-care (01) ==
PROVIDERS: PCP Nurse Practitioner Family; Referring Provider Nurse Practitioner Family; Visit Provider Nurse Practitioner Family
DX: N63.12 Unspecified lump in the right breast, upper inner quadrant (principal)
CPT/HCPCS: 76642

== ENCOUNTER → 2025-01-24 | Outpatient (CLI) | payer SELFPAY ==
--- NOTE | 2025-01-24 10:00 | BRBX_PTH ---
PATIENT: DMITRIY WAY LOC: [facility] U#:[id number] AGE/SX: 59/F ROOM: RE01/24/[address]: Dr. Ramya Mohan MD : 1965 BED: DIS: 01/24/2025 SPEC #: [id number] RECD: 01/24/25 10:33 STATUS: MARIYA REQ #: [id number] RIKKI: 01/24/25 10:[address]: Ramya Mohan DEPT: SURGICAL PATHOLOGY RECD BY: Prateek Gagnon ENTERED: 01/24/25 14:32 SP TYPE: BREAST BX OTHR DR: Luba Cooper, INSURANCE ADVISOR-C Tissues: A - Right breast, NOS Procedures: Immunohistochemical Stains Surgery Specimen Level IV IHC Stain ADDITIONAL HEADER OPERATION: Right breast biopsy PRE-OP DIAGNOSIS: Right breast biopsy TISSUE SUBMITTED: A- Right breast mass tissue - 6o'clock retroareolar Ischemic Time: <1 minute Fixation Time: 9 hours, 30 minutes MICROSCOPIC DIAGNOSIS A. Breast, right, mass, 6:00, retroareolar, core biopsy: - Invasive ductal carcinoma, grade 1 (tubule 1, nuclear 1, mitosis 1), at least 0.8 cm. - Numerous microcalcifications noted. - ER: positive (100%, intermediate intensity) - KS: positive (90%, strong intensity) - [id number]: PENDING to be reported in an addendum. - Ki67q: 5-10% Note: Ecadherin is positive and p40 is negative in the tumor cells, supporting the histologic impression. MICROSCOPIC DESCRIPTION Slides are reviewed. All matched controls reacted appropriately. These tests were developed and their performance characteristics determined by [facility]. They may not have been cleared or approved by the U.S. Food and Drug Administration. The FDA has determined that such clearance or approval is not necessary.? The above immunohistochemical/dualISH?markers are reviewed by the Pathologist. GROSS DESCRIPTION A. Received in formalin labeled with the patient's name and date of . Designated as R breast mass are 2 esteban-white tissue cores, each measuring 2.5 cm in length by 0.1 cm in diameter. Entirely submitted in 2 cassettes. Cold ischemic time: <1-minuteFixation time: 9 hours, 30 minutes MS 01/24/2025 CPT:[id number] ADDENDUM ADDENDUM ADDENDUM ADDENDUM ADDENDUM ADDENDUM ADDENDUM ADDENDUM ADDENDUM ADDENDUM ADDENDUM ADDENDUM ADDENDUM ADDENDUM ADDENDUM ADDENDUM 02/02/2025 11:24 ADDENDUM 02/02/2025 11:24 ADDENDUM 02/02/2025 11:24 ADDENDUM 02/02/2025 11:24 ADDENDUM 02/02/2025 11:24 ADDENDUM 02/09/2025 11:51 ADDENDUM 03/30/2025 16:04 This addendum is to report the result of the HFC8YPC performed at [facility]: [id number]: equivocal (2+) [id number]: pending, to be reported in a subsequent addendum. All controls show appropriate reactivity (HER2). All immunohistochemistry, in situ hybridization, and histochemical tests were developed by and are performed at the [facility], [address] [id number], [place] [id number]. All Immunofluorescent (IF)?tests were developed by and are performed at the [facility], [address] [place] [address], [place], [place] ?[address]. All tests reported here, except those addressing HER2 overexpression as a predictive marker, have not been cleared by or approved by the US Food and Drug Administration (FDA). The laboratory is regulated under CLIA as qualified to perform high-complexity testing. The tests are used for clinical purposes. They should not be regarded as investigational or for research. This addendum is added to incorporate an outside pathology consultation report. The case was examined at [facility] by Dr. Chisholm (#[id number]) and the following diagnosis was rendered. A. Breast, right, mass, 6:00, retroareolar, core biopsy: HER2/FISH: Negative. HER2 SCORE REPORT - A2: HER2 SCORE: Negative HER2 / CEP17 RATIO: 1.1 HER2 COPY NUMBER / CELL: 2.8 Please see complete above mentioned consultation report in EMR This addendum is added to incorporate an outside pathology consultation report. ONCOTYPE DX BREAST RECURRENCE SCORE REPORT - BLOCK A1 Recurrence Score Report: 11 Distant Recurrence Risk at 5 Years: 2% Group Average Absolute Chemotherapy Benefit: No apparent chemotherapy benefit: No apparent chemotherapy benefit (<1%) Please see complete above mentioned consultation report in EMR
== END | disposition home or self-care (01) ==
LOC: LABSPEC 11:26
PROVIDERS: PCP Nurse Practitioner Family; Referring Provider Surgery; Visit Provider Surgery
DX: C50.811 Malignant neoplasm of overlapping sites of right female breast (principal)
CPT/HCPCS: 88305; 88341; 88342

== ENCOUNTER 2025-02-21 08:46 | Day surgery (SDC) | payer SELFPAY ==
[2025-02-21] VITALS (11 sets, daily range): BP systolic 118–146; BP diastolic 79–94; PULSE 77–93; RESP 12–16; TEMP 36.7–36.8; O2SAT 92–97; BMI 24.9
--- NOTE | 2025-02-21 08:53 | HP.PCM_ITS ---
History and Physical Date of Admission: 02/21/25 Date of Service: 02/01/25 MR#: [id number] Acct: [id number] Name: DMITRIY WAY Rep #: [id number] : 1965 Provider: Dr. Ramya Mohan MD Age/Sex: 59/F Location: [facility] Status: Signed Intake Vital Signs 01/24/2509:40 Height 5 ft Weight: 128 lb 6 oz BMI 25.0 BP 139/93 H Blood Pressure Location Lt brachial Position Sitting Respiration 17 Pulse 103 H Pulse Source Monitor Pulse Oximetry (%) 98 Oxygen Delivery Method room air Intake Visit Reasons: Discuss pathology and surgical options Chief Complaint: discuss pathology and surgical options Accompanied by: Is patient in pain?: No Allergies acetaminophen (From Percocet) Allergy (Verified 02/01/25 12:46) Itchingazithromycin (From Zithromax) Allergy (Verified 02/01/25 12:46) Itchingclarithromycin (From Biaxin) Allergy (Verified 02/01/25 12:46) PT UNSURE OF REACTIONomeprazole (From Prilosec) Allergy (Verified 02/01/25 12:46) PT UNSURE OF REACTIONoxycodone (From Percocet) Allergy (Verified 02/01/25 12:46) ItchingPenicillins (PCN) Allergy (Verified 02/01/25 12:46) Swelling Medications ?Medication ?Instructions ?Recorded ?Confirmed ?Type albuterol sulfate 90 mcg/actuation 2 puff inhalation Q4H PRN PRN 12/05/23 02/01/25 History aerosol inhaler wheezing benzonatate 100 mg capsule 100 mg PO TID PRN PRN cough 12/05/23 History cyclobenzaprine 10 mg tablet 10 mg PO BID PRN PRN muscle spasm 02/01/25 History cholecalciferol (vitamin D3) 25 25 mcg PO QDAY 01/24/25 02/01/25 History mcg (1,000 unit) capsule semaglutide 2.4 mg/0.3 mL 4.5 mg subcut .weekly 01/24/25 02/01/25 History subcutaneous syringe PFSH Medical History (Updated 02/01/25 @ 13:[address] Ramya Mohan MD) COPD (chronic obstructive pulmonary disease) Chronic pain Surgical History History of tonsillectomy History of ear surgery History of partial hysterectomy Family History (Updated 01/24/25 @ 09:39 by Samantha Myers) Father Cancer tongueMother Cancer brain Social History (Updated 01/24/25 @ 09:40 by Samantha Myers) Smoking Status: Current every day smoker tobacco type: cigarettes quit status: considering quitting alcohol intake: never HPI HPI HPI: 59-year-old female presents due to new diagnosis of right breast invasive ductal carcinoma to discuss surgical options with her . The patient pathology did show invasive ductal carcinoma grade 1, ER/OH positive, HER2/daksha equivocal FISH pending. Patient states the biopsy site is healing well. ROS General General: Yes weight change (wt loss intentional) and breast cancer; No appetite, fatigue, colon cancer or weakness HEENT HEENT: No difficulty swallowing, eye injury, eye surgery, swollen glands or hoarseness Endo Endocrine: No thyroid disease, diabetes mellitus, thyroid cancer, Hair loss, heat intolerance or cold intolerance Skin Skin: No rash or changing moles Breast Breast: Yes right breast lump, abnormal mammogram and abnormal US; No left breast lump, nipple discharge, breast pain or breast enlargement Musc Musculoskeletal: No back problems, arthritis, rheumatoid arthritis, gout or j oint pain Cardio Cardiovascular: No murmur, pacemaker, heart disease, atrial fibrillation, high blood pressure, heart attack, heart stent, palpitations, shortness of breath wi th exertion or chest pain Psych Psychiatric: Yes anxiety; No depression or hearing voices Resp Respiratory: No shortness of breath, No sleep apnea, No cough, No COPD, No asthma, No emphysema and No wheezing Gastro Gastrointestinal: No abdominal pain, No nausea or vomiting, No diarrhea, No constipation, No blood in stool, No acid reflux, No hemorrhoids, No ulcers, No gallbladder problem and No black,tarry stools Dank Hematologic: No blood thinners, No blood disorders, No bleeding, No anemia and No blood clots Neuro Neurologic: No system reviewed and no additional complaints, except as documented, No as per HPI, No abnormal gait, No abnormal hearing, No abnormal movements, No abnormal speech, No behavioral changes, No burning sensations, No confusion, No convulsions, No disequilibrium, No dizziness, No localized weakness, No frequent falls, No headache(s), No lack of coordination, No loss of vision, No memory loss, No numbness, No other visual disturbances, No radicular pain, No restless legs, No sensory deficit, No syncope, No tingling, No tremor(s), No weakness and No other Exam Const General: cooperative, healthy appearing, comfortable and no acute distress [facility] Head: normocephalic and atraumatic Chest Other: Right breast biopsy site healing well ecchymosis resolving Resp Effort & Inspection: normal respiratory effort Cardio Rate: regular rate GI Inspection: non-distended Assessment and Plan Assessment and Plan (1) Invasive ductal carcinoma of breast: Status: Acute Comment: Right Plan Patient states she has been having anxiety as well as nausea due to this new diagnosis. Patient will check with her PCP as far as anxiety medication, did recommend patient take famotidine 20 mg p.o. daily [id number]. I have given the patient options for initial surgical treatment. Options are the following: lumpectomy followed by radiation therapy vs. mastectomy vs. mastectomy followed by immediate reconstruction. I have described the procedures to the patient. I have described the advantages and disadvantages of the options, but I have told the patient that among the options, the survival rate for breast cancer is the same. I have told the patient that with all the surgeries that a sentinel lymph node biopsy is required. I have described the procedure of sentinel lymph node biopsy to the patient. I have told the patient that if the biopsy is positive for metastatic disease, then a full axillary lymph node dissection is required. I have told the patient that adjuvant chemotherapy will be required should the lymph nodes reveal metastatic disease. Also, a full lymph node dissection will increase the risk for lymphedema, especially if there are 4 or more lymph nodes positive for metastatic disease and radiation to the axilla is also required. I have told the patient the risks of surgery, including but not limited to: infection, bleeding, scar tissue, seroma and persistent seroma, lymph leak, injury to any blood vessels, injury to any nerves (particularly the long thoracic, the thoracodorsal, and the second intercostal brachial and the resultant sequelae), lymphedema, cosmetic deformity, dysesthesias, wound infections, further surgery (especially if margins are not clear), complications of anesthesia, etc. the patient understands. Patient plans to ultrasound wire needle localization right lumpectomy (which will include the nipple areolar complex due to location of the mass), sentinel lymph node biopsy with nuclear tracer?Lymphoseek and blue dye possible axillary lymph node dissection. I have answered all the patient?s questions at this point to her satisfaction and she has no further questions. Ramya Mohan M.D. Pager: [phone] [facility] [address] [place] [address], [address] [place] [address] Office: [phone] Coding Level of Care Code Off vis,est,level 4 Diagnoses Invasive ductal carcinoma of breast C50.919 02/02/25 1505 <Electronically signed by Ramya Mohan MD> Date Ramya Mohan MD
[2025-02-21] MEDS: Lactated Ringers 1,000 ML 15 ML IV (09:26)
--- NOTE | 2025-02-21 09:46 | PCM.PRE.AN2 ---
ASA Classification* ASA Classification ASA Classification: 3 Assessment & Plan Anesthesia* Anesthesia Assessment Anesthesia Assessment: Discussed sedation and/or anesthesia options, risks, benefits, and alternatives with patient/parents/legal guardian/POA. Questions invited. The patient/parents/legal guardian/POA seems to understand and agrees to proceed with anesthesia plan. Reviewed the physical assessment, medical history, allergy history and patient home medications list prior to surgery/procedure/anesthetic and documented any changes. Performed airway and anesthesia risk assessments. Anesthesia Type Anesthesia Type: General History Source History Obtained from:: Patient and Chart Anesthesia Focused Assessment* Temperature: 98.0 F Pulse Rate: 88 Blood Pressure: 140/85 Respiratory Rate: 12 Pulse Ox: 97 Oxygen Delivery Method: Room Air Airway Assessment Mouth opens: 2 cm Mallampati Score: II Teeth Condition: Intact Neck Range of motion (ROM): Full ROM Labs Anesthesia Preop lab: CBC WBC 6.4 K/mm3 (4.4-11.0) 12/23/24 14:38 12/23/24 RBC 4.62 M/mm3 (4.2-5.4) 12/23/24 14:38 12/23/24 Hgb 13.7 g/dL (12.0-15.0) 12/23/24 14:38 12/23/24 Hct 40.2 % (37-47) 12/23/24 14:38 12/23/24 Plt Count 312 K/mm3 (150-450) 12/23/24 14:38 12/23/24 CHEMISTRY Potassium 3.6 mmol/L (3.3-5.1) 12/23/24 14:38 12/23/24 Sodium 136 mmol/L (133-145) 12/23/24 14:38 12/23/24 BUN 7 mg/dL (4-19) 12/23/24 14:38 12/23/24 Creatinine 0.62 mg/dL (0.70-1.20) L 12/23/24 14:38 12/23/24 Glucose 99 mg/dL (70-99) 12/23/24 14:38 12/23/24 TSH 1.510 uIU/mL (0.300-4.200) 12/23/24 14:38 12/23/24 COAG Pre-Assessment Diagnosis/Proposed Procedure Planned Operative Procedure(s): ULTRASOUND GUIDED RIGHT LUMPECTOMY WITH SENTINAL LYMPH NODE BIOPSY, BLUE DYE, RADIOTRACER, POSSIBLE, AXILLARY DISSECTION Anesthesia History 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 When Was Last Pacemaker Check QUESTION #4 FULL TEXT: You/Your Family Experience fever (hyperthermia) with Anesthesia Last Oral Intake Last Oral intake: Last Oral Intake NPO since 21:30 02/21/25 09:14 Meds taken in AM with sips of Yes 02/21/25 09:14 water? Meds patient instructed to take am of surgery PONV PONV - motor tune up specialist: PONV - motor tune up specialist Female Yes 02/07/25 15:07 HX of Motion Sickness No 02/07/25 15:07 HX of N/V After Surgery No 02/07/25 15:07 Non-Smoker No 02/07/25 15:07 Duration of Surgery greater Yes 02/07/25 15:07 than 60 minutes Number of Risk Factors 2 02/07/25 15:07 PONV Score Moderate Risk 02/07/25 15:07 Height & Weight Height & Weight: Anesthesia: Height & Weight Height 5 ft 02/21/25 09:14 Weight: 57.9 kg 02/21/25 09:14 Body Mass Index (BMI) 24.9 02/21/25 09:14 Respiratory Assessment Respiratory Assessment - motor tune up specialist: Respiratory Tract Infection Hx - motor tune up specialist Hx Respiratory Tract Infection No 02/07/25 15:07 STOP Sleep Apnea STOP Sleep Apnea - motor tune up specialist: STOP Sleep Apnea - motor tune up specialist Hx Hypertension No 02/07/25 15:07 Hx Sleep Apnea No 02/07/25 15:07 CPAP BIPAP Do you snore loudly (louder No 02/07/25 15:07 than talking or can be heard Do you often feel tired/ No 02/07/25 15:07 fatigued/ sleepy during daytime? Has anyone observed you stop No 02/07/25 15:07 breathing during sleep? STOP Results Negative 02/07/25 15:07 QUESTION #5 FULL TEXT : Do you snore loudly (louder than talking or can be heard through closed doors)? 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 Specify any problems Hx of Preganancy in last 3 No 02/07/25 15:07 Months Nurse Filling Out Transfusion [email or web address] 02/07/25 15:07 & Questions: Date: 02/07/25 02/07/25 15:07 Time: 15:10 02/07/25 15:07 Patient unable to answer at this time (ie. confused, unrespo /Reproduction History /Reproductive History - motor tune up specialist: /Reproductive Hx- motor tune up specialist Hx Now Gestational Age (in weeks): EDC: Hx Hx Para Hx Section SAB Active Medications Active Medications: Current Medications Generic Name Dose Route Start Last Admin Trade Name Freq PRN Reason Stop Dose Admin Clindamycin Phosphate 900 mg in 50 mls @ 75 mls/hr 02/21/25 11:00 Cleocin IV 02/21/25 11:39 INTRAOP ONE Lactated Ringer's 1,000 mls @ 15 mls/hr 02/21/25 09:00 02/21/25 09:26 IV 15 mls/hr .Q48H CANDICE Administration PFSH Medical History (Updated 02/07/25 @ 15:15 by Lonnie Browning) Alcohol use Anxiety History of steroid therapy Migraine headache Gastric reflux COPD (chronic obstructive pulmonary disease) Chronic pain Home Medications ?Medication ?Instructions ?Recorded ?Last Taken ?Type albuterol sulfate 90 mcg/actuation 2 puff inhalation Q4H PRN PRN 12/05/23 12/05/23 History aerosol inhaler wheezing benzonatate 100 mg capsule 100 mg PO TID PRN PRN cough 12/05/23 12/05/23 History cyclobenzaprine 10 mg tablet 10 mg PO BID PRN PRN muscle spasm 12/05/23 02/21/25 History cholecalciferol (vitamin D3) 25 25 mcg PO QDAY 01/24/25 02/20/25 History mcg (1,000 unit) capsule semaglutide 2.4 mg/0.3 mL 4.5 mg subcut .SEE 01/24/25 02/05/25 History subcutaneous syringe buspirone 5 mg tablet 5 mg PO TID PRN PRN anxiety 02/07/25 02/20/25 History Allergy/AdvReac Type Severity Reaction Status Date / Time azithromycin (From Zithromax) Allergy Itching Verified 02/21/25 09:09 clarithromycin (From Biaxin) Allergy PT UNSURE Verified 02/21/25 09:09 OF REACTION omeprazole (From Prilosec) Allergy PT UNSURE Verified 02/21/25 09:09 OF REACTION oxycodone (From Percocet) Allergy Itching Verified 02/21/25 09:09 Penicillins (PCN) Allergy SOB Verified 02/21/25 09:09 Family History (Updated 01/24/25 @ 09:39 by Samantha Myers) Father Cancer tongue Mother Cancer brain Surgical History History of tonsillectomy History of ear surgery History of partial hysterectomy Social History (Updated 01/24/25 @ 09:40 by Samantha Myers) Smoking Status: Current every day smoker tobacco type: cigarettes quit status: considering quitting alcohol intake: never Review of Systems (Anesthesia) ROS Narrative System reviewed and no additional complaints, except as documented. Cardiovascular Cardiovascular: Denies chest pain, dyspnea, hypertension or palpitations Respiratory/Chest Respiratory/Chest: Denies chest congestion, cough or wheezing Gastrointestinal Gastrointestinal: Denies heartburn, nausea or vomiting Physical Exam Const alert HEENT dentition normal Neck full ROM Resp normal respiratory effort and normal air movement Cardio regular rate and regular rhythm
--- NOTE | 2025-02-21 09:50 | NM_ITS ---
PROCEDURE: LYMPH NODE INJECTION ONLY 02/21/2025 REASON FOR EXAM: LYMPH NODE INJECTION TECHNIQUE: LYMPH NODE INJECTION ONLY 595 uCi of Tilmanocept injected subdermally around the nipple. Delete COMPARISON: None FINDINGS: Subdermal injection of the radiopharmaceutical for sentinel node imaging. NM/Lymph Node Injection Only IMPRESSION: Subdermal injection of the radiopharmaceutical for sentinel node imaging. Reading Location: [id number]
[2025-02-21] MEDS: Midazolam 2 MG/2 ML Syringe IV (10:50)
[2025-02-21] MEDS: Lactated Ringers 1,000 ML 1000 ML IV (10:50)
[2025-02-21] MEDS: Lidocaine 1% (5 ml sdv) 5 ML Vial IV (10:55)
[2025-02-21] MEDS: 0.9% Normal Saline (Pres. free 10 ML Vial (10:58)
--- NOTE | 2025-02-21 11:00 | AXNB_PTH ---
PATIENT: [address] [place] [facility] [id number] AGE/SX: 59/F ROOM: RE02/21/[address]: Dr. Ramya Mohan MD : 1965 BED: DIS: 02/21/2025 SPEC #: [id number] RECD: 02/21/25 11:54 STATUS: MARIYA REQ #: [id number] RIKKI: 02/21/25 11:[address]: Ramya Mohan DEPT: SURGICAL PATHOLOGY RECD BY: Prateek Gagnon ENTERED: 02/21/25 13:35 SP TYPE: AX NODE BX OTHR DR: Luba Cooper, SUPER[employer] Tissues: A - Axillary lymph node, NOS B - Right breast, NOS Procedures: Immunohistochemical Stains Surgery Specimen Level V IHC Stain ADDITIONAL HEADER OPERATION: Breast, ultrasound guided wire localized right lumpectomy, sentinel lymph node PRE-OP DIAGNOSIS: Invasive ductal carcinoma of right breast TISSUE SUBMITTED: A- [place] node - axilla, right *neoprobe 136, 690 neoprobe, B- Right breast tissue *long tag- lateral, short tag- superior* FROZEN SECTION DIAGNOSIS A. [place] lymph node, right, biopsy: Negative for macrometastasis. B. Right breast, lumpectomy (gross assessment of margins): Closest margin is posterior (mid-portion of excision) at 5mm. Remaining margins are >10mm. 02/21/2025 MICROSCOPIC DIAGNOSIS A. Right axilla, sentinel lymph node, excision: - One lymph node positive for metastasis (5 mm) with focal extranodal extension (2 mm) - see note. Note: The metastasis was not represented in the sections obtained for intraoperative examination (frozen section). IHC for pankeratin supports the histologic impression. B. Right breast, lumpectomy: - Invasive ductal carcinoma Grade 1 (tubule 1, nuclear 2, mitosis 1), surgical margins free. - 1.4 cm, pT1c pN1a(sn) - Microcaifications, patchy fat necrosis, biopsy clip site. - Small epidermal inclusion cyst of skin (incidental). - See Synoptic Report. SYNOPTIC REPORT FOR INVASIVE BREAST CARCINOMA Specimen (P=partial, M=mastectomy):?P Laterality (R=right, L=left):?R Focality (U=unifocal, M=multifocal):?U Tumor size (cm):?1.4 cm Histologic type:?invasive ductal, NST Histologic grade:?1 ??? Tubule score (1-3):?1 ??? Nuclear score (1-3):?2 ??? Mitotic score (1-3):?1 Skin, nipple epidermis, skeletal muscle (I=involved, N=negative, NA=not applicable):?N (skin, nipple) Lymphovascular invasion (E=extensive, F=focal, N=not identified):?N Margins of main specimen (P=positive, N=negative):?N Distance to closest margin of main specimen (mm):?5 mm Designation of closest margin of main specimen:?posterior Designation of other margins of main specimen </=1 mm:?NA Re-resection margin status (P=positive, N=negative, NA=not applicable):?NA ? DCIS (P=present, N=not identified):?N ? Regional lymph nodes: ?? Total number of lymph nodes:?1 ?? Number of sentinel lymph nodes:?1 ?? Number with macrometastases:?1 ?? Number with micrometastases:?0 ?? Number with isolated tumor cells:?0 ?? Size of largest leonila metastasis (mm):?5 mm ?? Size of extranodal extension (mm) (N=not identified):?2 mm ? Estrogen receptor:?positive (90%, strong intensity) Progesterone receptor:?positive (90%, strong intensity) HER2 IHC:?PENDING to be reported in an addendum HER2 FISH:? Ki67: 15% Specimen in which ER/NE/HER2 performed:?[id number] pTNM:?pT1c pN1a(sn) Additional findings:?microcalcifications, patchy fat necrosis, biopsy clip site, small epidermal inclusion cyst of skin IHCs utilized in the assessment: A1 - pankeratin B3 - CK5/6, p40, ER, NE, HER2, Ki67 Comment:?A radiograph of the breast specimen was utilized to assist in the sectioning of the specimen. Dr Mohan was notified of the frozen section diagnosis discrepancy, 02/28/25 (office staff, Tita). ? The above synoptic report complies, in slightly modified form, with the guidelines of the [employer] [place] [employer] and the Association of Directors of Anatomic and Surgical Pathology for the reporting of cancer specimens MICROSCOPIC DESCRIPTION Slides are reviewed. ?All matched controls reacted appropriately. These tests were developed and their performance characteristics determined by [facility]. They may not have been cleared or approved by the U.S. Food and Drug Administration. The FDA has determined that such clearance or approval is not necessary.? The above immunohistochemical?markers and/or special stains have been reviewed by the Pathologist. GROSS DESCRIPTION A. Received fresh labeled with the patient's name and date of . Designated as sentinel node, axilla, right is a 1.2 x 1.1 x 0.7 cm esteban-pink intact lymph node with attached soft tissue. The lymph node is trisected and entirely submitted for frozen section diagnosis and subsequently placed in cassette A1 for permanent sections. No blue dye is present. The remainder of the soft tissue is submitted in cassette A2. B. Right breast tissue 5.3 x 5.2 x 2.1 cm lumpectomy with an exposed, localization wire spanning from the skin on the lateral aspect. There is a short suture designated as superior, and a long suture designated as lateral. A 7.0 x 4.3 cm esteban slightly wrinkled skin ellipse is present, with a central nipple and faint surrounding apparent areola, 1.4 cm and 2.4 cm, respectively. Blue surgical dye is present, diffusely involving up to 90% of the specimen. The specimen is inked as follows: Superior: RedInferior: BlueMedial: YellowLateral: OrangePosterior: Black The specimen is serially sectioned from lateral to medial (into 8 levels) revealing a central, 1.4 x 1.0 x 0.9 cm esteban-white, indurated, subareolar mass. There is patchy apparent fat necrosis, primarily adjacent to the mass. The mass is located the following distances from each margin: Anterior: >1.0 cmInferior: >1.0 cmMedial: >1.0 cmLateral: >1.0 cmPosterior: 0.5 cmSuperior: >1.0 cm Review of postoperative imaging confirms the presence of a localization wire and biopsy clip. Casework Supervisor sections are submitted, sequentially from lateral to medial, as follows: B1: Lateral skin tip (orange)B2: Fibrotic parenchymaB3: Mass to nipple and overlying skin, with posterior (black)B4: Apparent fat necrosis adjacent to mass, with posterior (black)B5: Mass, no marginsB6-B7: Mass to skin/nipple, with posterior (black)B8: Possible fat necrosis adjacent to mass with inferior/superior margin (blue/red)B9: Medial skin and skin tip (red, yellow) Cold ischemic time: 19 minutesFormalin fixation time: 7 hours, 8 minutes PA 02/21/2025 CPT:[id number] ADDENDUM ADDENDUM ADDENDUM ADDENDUM ADDENDUM ADDENDUM 03/03/2025 15:21 ADDENDUM 03/03/2025 15:21 ADDENDUM 03/03/2025 15:21 ADDENDUM 03/03/2025 15:21 ADDENDUM 03/03/2025 15:21 ADDENDUM 04/05/2025 09:34 This addendum is to report [id number] for part B (block B3): B) [id number]: equivocal (2+) [id number]: PENDING, to be reported in a subsequent addendum. This addendum is added to incorporate an outside pathology consultation report. The case was examined at [facility] (#[id number] - A1) and the following diagnosis was rendered ([id number]): B. Right breast, lumpectomy: HER2: Negative HER2 SCORE REPORT: HER2 SCORE: Negative INTERPRETATION: Tumor shows a HER2/CEP17 ratio less than 2.0 and HER2 copy number less than 4.0 by FISH. Given the negative or 2+ HER2 IHC result, the HER2 status is negative (Group 5N). Internal and external controls show expected signal pattern. HER2 / CEP17 RATIO: 1.1 HER2 COPY NUMBER / CELL: 3.0 Please see complete above mentioned consultation report in EMR
--- NOTE | 2025-02-21 12:05 | PCM.OPRPT ---
Oncology: Avni Requirements . Oncology surgical intervention performed: [place] Node Biopsy for Breast Cancer performed [place] Node Bx - Breast Cancer: Synoptic Portion: Element Response Options Operation performed with curative intent.Yes Tracer(s) used to identify sentinel nodes in the upfront surgery (non-neoadjuvant) setting (select all that apply). Dye; Radioactive tracer Tracer(s) used to identify sentinel nodes in the neoadjuvant setting (select all that apply) N/A. All nodes (colored or non-colored) present at the end of a dye-filled lymphatic channel were removed. Yes All significantly radioactive nodes were removed. Yes All palpably suspicious nodes were removed. Yes Biopsy-proven positive nodes marked with clips prior to chemotherapy were identified and removed. N/A. Operative Report (Standard) Operative Information Date of Procedure: 02/21/25 Pre-Operative Diagnosis: Right breast cancer Post-Operative Diagnosis: Same Surgery/Procedure Performed: Right ultrasound guided wire localization lumpectomy including the nipple areolar complex, sentinel lymph node biopsy with Lymphoseek and Lymphazurin blue electric truck operator: Yes Farm Machine Operator: Sebas Ty Tasks completed by case management assistant: Opening & closing and Retracting Type of Anesthesia: General/Supplemental RN Documented Start/Stop Times: Operation Date: 02/21/25 11:00 Case Time Into Pre-Op 02/21/25 08:50 Out of Pre-Op 02/21/25 10:45 Anesthesia Start 02/21/25 10:50 Into Room 02/21/25 10:50 Procedure Start 02/21/25 11:14 Procedure End 02/21/25 12:39 Anesthesia End 02/21/25 12:43 Out of Room 02/21/25 12:43 Into Recovery 02/21/25 12:45 Into Phase II Recovery 02/21/25 13:48 Out of Recovery 02/21/25 13:48 Out of Phase II 02/21/25 14:17 Procedure Start Time: 11:14 Procedure Stop Time: 12:39 Select all DRAINS/GRAFTS/IMPLANTS that apply: None Special Medications: Clindamycin 900 mg IV x 1 Estimated Blood Loss: < 10 cc Specimen collected: Yes Description of specimen(s) removed: 1. Right sentinel lymph nodes, #2 right lumpectomy Description of surgery: In the breast tissue was injected with Lymphoseek. 30 minutes later the patient was taken to the operating room and general anesthesia was induced. 5 cc of Lymphazurin 1% blue dye was injected in the 4 quadrants periareolar along with 10 cc of normal saline. This was massaged gently for 5 minutes. The right breast and axilla were prepped and draped in usual sterile fashion. A timeout was completed verifying correct patient, procedure, site, positioning, special equipment prior to beginning procedure. Handheld gamma probe was used to identify the location of the hottest spot in the axilla. Prior to the incision, the counts were 15. The incision was made in the hot and blue was identified. The probe was placed in contact with the node in the 10 count was 690. The bed of the node measured 12 counts. No additional blue or hot nodes or palpable were detected. Frozen had 1 lymph node negative. Ultrasound was use for localization of the breast mass using the BARD needle. The wire was placed just inferiorly to the mass. A elliptical including the nipple areolar complex incision was planned as the mass was retroareolar. Flaps were raised in the location of the wire confirmed. The wire was delivered into the wound. 2 silk [id number] stay suture was placed around the wire and used for traction. Dissection was then taken down circumferentially, taking care to include the entire localization needle and wide margin of grossly normal tissue. The specimen and entire localizing wire were removed. The specimen was oriented and sent to radiology. Confirmation was received that the entire target lesion had been resected. 3 medium clips were placed in the line at the deep area of the cavity. The cavities were irrigated. Hemostasis was checked. The breast and axillary incisions were closed with interrupted sutures of 3-0 Vicryl and subcuticular sutures of 4-0 Monocryl. No attempt was made to close the space. Dermabond and supportive bra placed. The patient tolerated procedure well was taken to the postanesthesia care in stable condition Surgical Findings: See operative note Complications Complications: No
--- NOTE | 2025-02-21 12:06 | BI_ITS ---
EXAM: BREAST BIOPSY SPECIMEN 02/21/2025 CLINICAL HISTORY: F, Age 59 y/o, breast biopsy. TECHNIQUE: BREAST BIOPSY SPECIMEN COMPARISON: None FINDINGS: The breast biopsy contains the mass as well as the localization wire and tissue clip marker. BI/Breast Biopsy Specimen IMPRESSION: OVERALL FINAL ASSESSMENT: BIRADS 11 WAITING PATHOLOGY. RECOMMENDATION: Routine annual follow-up in 1 Year A letter with findings and recommendations will be mailed to the patient. Reading Location: [id number]
--- NOTE | 2025-02-21 12:11 | DCINST_ITS ---
Discharge Instructions Diet Discharge Diet: No restrictions Activity Discharge Activity: May Not Drive (for 2-3 days or while taking narcotic pain meds.) May shower in (days): 1 Lifting Restrictions: 10 pounds for 1 week. Dressing / Incision Call your doctor if your incision/area has: Continuous Slow Oozing, Sudden Increased Bleeding, Increased Pain/ Swelling and Increased Redness Call your doctor if you observe: Fever of 101 or Higher Suture Line Care: Avoid Pulling/Pushing and Avoid Pinching/Bending Remove Dressing in: 1 day Additional Dressing/Incision Instructions:: Remove bulky dressing tomorrow. May leave op-site dressing for 3-4 days. Dermabond (glue) was used at the axillary incision this may start to peel off in about 5 days. Okay to remove Steri- Strips from the breast incision in 7 to 10 days. Follow Up Care Please Follow Up With: Ramya Mohan MD When: Please call [phone] for an appointment to be seen in 2 week. Test Results: Test results from this visit will be discussed in further detail at your follow- up appointment, if applicable. Discharge Plan Admission Attending Provider: Ramya Mohan Primary Care Provider: Luba Cooper Instructions Print Language: Indonesian Discharge Orders/Prescriptions Prescriptions: New hydrocodone-acetaminophen 5-325 mg tablet 1 tab PO Q6H PRN (Reason: pain) 3 Days Qty: 10 0RF Continued semaglutide 2.4 mg/0.3 mL syringe 4.5 mg subcut .SEE Patient Comments: 10-14 DAYS. cholecalciferol (vitamin D3) 25 mcg (1,000 unit) capsule 25 mcg PO QDAY buspirone 5 mg tablet 5 mg PO TID PRN PRN (Reason: anxiety) benzonatate 100 mg capsule 100 mg PO TID PRN PRN (Reason: cough) albuterol sulfate 90 mcg/actuation HFA aerosol inhaler 2 puff INHALATION Q4H PRN PRN (Reason: wheezing) cyclobenzaprine 10 mg tablet 10 mg PO BID PRN PRN (Reason: muscle spasm) Referrals / Follow Up: Luba Cooper, [employer]TER [employer] [Primary Care Provider] - Disposition Disposition (needs filled in before D/C Order can be placed): Home, Self Care
[2025-02-21] MEDS: fentaNYL 100 MCG/2 ML Ampul 200 MCG IV (12:39)
--- NOTE | 2025-02-21 12:49 | PCM.POST.ANE ---
Anesthesia: Postop Eval I Current Vital Signs Temperature: 98.1 F Pulse Rate: 77 Blood Pressure: 143/80 Respiratory Rate: 14 Pulse Ox: 97 Oxygen Delivery Method: Simple Mask Assessment Airway patent: Yes Spontaneous unlabored respirations: Yes Mental status: Awake nausea: No Vomiting: No Anesthesia Complication: No Fluid Hydration Crystalloid volume administer (ml): 1,000 Total IV fluid infused: 1,000 Progress Note Anesthesia document: Postop Eval 1 completed: Yes
== END 2025-02-21 14:17 | disposition home or self-care (01) ==
LOC: SDC 08:47 → AC 08:48
PROVIDERS: PCP Nurse Practitioner Family; Referring Provider Surgery; Visit Provider Surgery
PROC: 0HBV0ZZ Excision of Bilateral Breast, Open Approach (ICD-10-PCS; CPT 19302; principal; 2025-02-21 10:45)
DX: C50.911 Malignant neoplasm of unspecified site of right female breast (principal); C77.3 Secondary and unspecified malignant neoplasm of axilla and upper limb lymph nodes; J44.9 Chronic obstructive pulmonary disease, unspecified; Z90.710 Acquired absence of both cervix and uterus; Z17.0 Estrogen receptor positive status [ER+]; F17.210 Nicotine dependence, cigarettes, uncomplicated; L72.0 Epidermal cyst
CPT/HCPCS: 19301; 38500; 38900; 00400; 38792; 76098; 88307; 88341; 88342; A4648; A9520; J2405; Q9968

== ENCOUNTER → 2025-05-29 | Outpatient (CLI) | payer SELFPAY ==
--- NOTE | 2025-05-29 07:27 | MRI_ITS ---
PROCEDURE: UPPER EXT JOINT ONLY(ROUTINE) 05/29/2025 REASON FOR EXAM: PAIN IN LEFT SHOULDER. Fell, with injury approximately 3 weeks ago. TECHNIQUE: Procedure Code: MRIUEJ Modality: MR Procedure: UPPER EXT JOINT ONLY(ROUTINE) Multiplanar and multisequence images were obtained without IV contrast administration. COMPARISON: COMPARISON: None provided. FINDINGS: The examination is somewhat limited by recurrent patient motion. An impacted FRACTURE of the surgical neck of the left humerus is seen, with the adjacent edema, and glenohumeral joint effusion, as well. Moderate degenerative changes are seen of the left acromioclavicular joint, with associated partial joint narrowing. No other area of abnormal osseous signal is seen. The long head of the biceps tendon is likely intact. MRI/Upper Ext Joint Only(Routine) IMPRESSION: Impacted fracture of the proximal left humerus. Recommend plain film imaging, if not already performed. Reading Location: [id number]
--- OUTSIDE RECORDS SUMMARY | 2025-05-29 07:39 | XMS RPT_ITS ---
Author Name Auto Generated Organization [facility] SURG PATH REQUEST Collected: 03/30/2025 9:42 AM Stat us: F Source: [facility] TYPE CODE TESTS RESULT OUT OF RANGE REFERENCE UNITS LAB [id number] Case Report Result Comment: Surgical Pat hology Report Case: [id number] Authorizing Provider: Irene Garcia MD Collected: 03/30/2025 09:42 AM Ordering Location[facility] Received: 03/30/2025 09:38 AM [facility] Pathologist: Adelaida Kingsley MD Specimen: SURG PATH, Outside block; Right breast, lumpectomy, gross assessment of margins; Molecularof LAB [id number] Clinical History Result Comment: Received is a request from Irene Garcia MD at [facility] for molecular testing on a paraffin block received from [facility]. Pre-Op Diagnosis: Invasive ductal carcinoma of right breast. LAB [id number] Pathologic Diagnosis Result Comment: Outside Bloc k: [id number] (02/21/25) B. Right breast, lumpectomy, gross assessment of margins: HER2 FISH (See separate FISH report for details): completed. at 0649 ED LAB [id number] Microscopic Description Tissue was assessed by a molecular pathologist to select areas for analysis and to correlate immunostaining with histology. No morphologic assessment was requested. LAB [id number] Gross Description Result Comment: The followin g material(s) are received from [facility], [address] [place] [address] with an identifying Surgical Pathology Report: 1 paraffin block marked [id number] (B3), which is submitted to the [facility] histology/IHC laboratory for recutting and additional staining for molecular testing: HER2, FISH. Materials will be returned upon completion. Grosser for this case was: [facility] Professional Interpretation Performed at: Professional Interpretation Performed at: Result Comment: [facility] For Immediate Release to Patient's [facility] Yes [address], [facility] [place] [address] [place], [place] [address] Performed By: [facility] (DEFAULT) [address] [place] [address] SURG PATH REQUEST Collected: 02/03/2025 10:13 AM Sta tus: F Source: [facility] TYPE CODE TESTS RESULT OUT OF RANGE REFERENCE UNITS LAB [id number] Case Report Result Comment: Surgical Pat hology Report Case: [id number] Authorizing Provider: Irene Garcia MD Collected: 02/03/2025 10:13 AM Ordering Location: [facility] Received: 02/03/2025 09:19 AM [facility] Pathologist: Nacho Chisholm MD, PhD Specimen: SURG PATH, Outside block [id number] (A2); Breast, right, mass, 6:00, retroareolar, core biopsy; Molecular testing LAB [id number] Clinical History Received is a request from Irene Garcia MD at [facility] for molecular testing on a paraffin block received from [facility]. Pre-Op Diagnosis: Right breast biopsy. LAB [id number] Pathologic Diagnosis Result Comment: Outside Slid es: [id number] (01/24/25) A. Breast, right, mass, 6:00, retroareolar, core biopsy: HER2/FISH: Negative (See FISH results separately reported) at [address] [facility] [id number] Microscopic Description Tissue was assessed by a molecular pathologist to select areas for analysis and to correlate immunostaining with histology. No morphologic assessment was requested. LAB [id number] Gross Description Result Comment: The followin g material(s) are received from [facility], [address] [place] [address] with an identifying Surgical Pathology Report: 1 paraffin block marked [id number] (A2), which is submitted to the [facility] histology/IHC laboratory for recutting and additional staining for molecular testing: HER2, FISH. Materials will be returned upon completion. Grosser for this case was: [facility] Professional Interpretation Performed at: Professional Interpretation Performed at: Result Comment: [facility] For Immediate Release to Patient's MyChart? Yes [address] [facility] [address] [place], [place] [address] Performed By: ADITI Avila [facility] (DEFAULT) [address] [place] [address]
== END | disposition home or self-care (01) ==
PROVIDERS: PCP Nurse Practitioner Family
DX: M25.512 Pain in left shoulder (principal)
CPT/HCPCS: 73221